=== PATIENT | female | born 1990 | race Hispanic/Latino ===

== ENCOUNTER → 2017-07-24 09:17 | Outpatient (CLI) | payer OTHER, SELFPAY | PROVIDERS: PCP Family Medicine; Visit Provider Family Medicine | DX: Z11.3 Encounter for screening for infections with a predominantly sexual mode of transmission (principal); Z53.9 Procedure and treatment not carried out, unspecified reason ==

== ENCOUNTER → 2017-08-02 12:02 | Outpatient (CLI) | payer OTHER, SELFPAY ==
[2017-08-02 14:13] LABS: Urine N gonorrhoeae NOT DETECTED
[2017-08-02 16:18] LABS: Urine Chlamydia NOT DETECTED
[2017-08-02 17:08] LABS: HIV 1 and 2 Antibody NEGATIVE (NEGATIVE)
== END ==
PROVIDERS: PCP Family Medicine; Visit Provider Family Medicine
DX: Z11.3 Encounter for screening for infections with a predominantly sexual mode of transmission (principal)
CPT/HCPCS: 36415; 86703; 87491; 87591

== ENCOUNTER 2017-12-20 15:19 | Emergency (ER) | payer OTHER, SELFPAY ==
[2017-12-20 15:40] VITALS: BP 133/85; PULSE 108; RESP 25; TEMP 37.5; O2SAT 100
[2017-12-20] MEDS: ONDANSETRON 4 MG/2 ML INJ IV (15:50)
[2017-12-20 15:51] LABS: Add Manual Diff / Slide Review NO; Basophils Percent Auto 0.6 % (0-2); Eosinophils Percent Auto 0.8 % (2-4); Hematocrit 39.5 % (36-46); Hemoglobin 13.7 g/dL (12.0-16.0); Lymphocytes Percent Auto 26.9 % (25-40); Mean Corpuscular HGB Conc 34.6 % (30-36); Mean Corpuscular Hemoglobin 28.4 PG (26-34); Mean Corpuscular Volume 82.1 fL (80-100); Neutrophils Absolute Auto 8200 /uL (3000-5900); Neutrophils Percent Auto 66.7 % (50-75); Platelet Count 354 X10^3/uL (150-400); Red Blood Cell Count 4.81 X10^6/uL (4.0-5.2); Red Cell Distribution Width 13.6 % (11.6-14.8); White Blood Cell Count 12.3 X10^3/uL (4.5-11.0)
[2017-12-20] MEDS: HYDROMORPHONE 1 MG INJ 0.5 MG IV ×2 (15:51→17:09)
[2017-12-20] MEDS: SODIUM CHLORIDE 0.9% 1,000 ML 150 ML IV (15:51)
--- NOTE | 2017-12-20 15:52 | ED.ABDPAIN ---
HPI - Abdominal Pain General Chief Complaint: Abdominal Pain Stated Complaint: ABD PAIN Time Seen by Provider: 12/20/17 15:25 Source: patient and family Mode of arrival: ambulatory Limitations: no limitations History of Present Illness HPI narrative: 27-year-old female presents to the emergency department with multiple family members with a chief complaint of severe right-sided abdominal pain that radiates across to the left side of her abdomen over the course of the day. It is worse when she moves and improves with rest. She denies any injury. She denies nausea, vomiting or diarrhea. She denies fever or chills. She has had multiple episodes of significant gas pain in the past but states this feels different. Her gallbladder is surgically absent. Related Data Home Medications Medication Instructions Recorded Confirmed metformin 1 dose PO DIRECTED 12/20/17 12/20/17 Previous Rx's Medication Instructions Recorded hydrocodone-acetaminophen 1 tab PO Q4-6H PRN #14 tab 12/20/17 ondansetron [Zofran ODT] 4 mg PO Q6H PRN #14 tab 12/20/17 Allergies Allergy/AdvReac Type Severity Reaction Status Date / Time Penicillins [PENICILLINS] Allergy Unknown Verified 12/20/17 15:40 Review of Systems Review of Systems All systems reviewed & are unremarkable except as noted in HPI and below Constitutional Denies chills, Denies fever(s), Denies lethargy and Denies weakness Eyes Denies change in vision, Denies eye discharge, Denies irritation and Denies loss of vision ENT Ears, Nose, Mouth, and Throat: Denies change in voice, Denies neck pain and Denies sore throat Cardiovascular Denies chest pain, Denies irregular heart rhythm, Denies lightheadedness, Denies palpitations, Denies dyspnea, Denies dyspnea on exertion and Denies orthopnea Respiratory Denies cough, Denies dyspnea, Denies dyspnea on exertion and Denies wheezing Gastrointestinal Gastrointestinal: Reports abdominal pain, Denies change in bowel habits, Denies diarrhea, Denies nausea and Denies vomiting Genitourinary Denies hematuria, Denies flank pain, Denies urinary incontinence and Denies urinary urgency Musculoskeletal Denies neck pain Integumentary/Breasts Denies pruritus, Denies erythema, Denies rash and Denies wounds Neurologic Denies confusion, Denies loss of vision and Denies weakness Psychiatric Denies anxiety, Denies confusion, Denies depression, Denies homicidal ideation and Denies suicidal ideation Endocrine Denies palpitations Hematologic/Lymphatic Denies easy bruising Allergic/Immunologic Denies wheezing [facility] Medical History Anemia (Chronic 2006) Anxiety (Chronic 2009) Irregular periods/menstrual cycles (Chronic 2009) Migraines (Chronic 2005) Ovarian cyst (Chronic 2003) Chicken pox (Resolved 1998) Surgical History Anesthesia (Resolved) Hx of cholecystectomy (Resolved 2014) Family History Grandfather Heart disease Hypertension High cholesterol Diabetes mellitus Grandmother Heart disease Diabetes mellitus Mother Age: 50 Hypertension High cholesterol Diabetes mellitus Social History pets and animals: Yes education level: high school occupational status: student robert/congregational: [employer] seatbelt use: always working smoke detector in home: Yes fire extinguisher in home: Yes firearms in home: No Smoking Status: Current some day smoker quit status: quit date established alcohol intake: current substance use type: does not use during the past year weight has: increased > 10 lbs well-balanced diet: about half the time daily servings fruits/ve-4 caffeine: No eating out: rarely or never frequency: 1-2 times per week duration: 15-30 minutes/day additional social history: Rare/occasional alcohol use Exam Narrative Exam Narrative: GENERAL: 27F clutching her abdomen, obviously uncomfortable. HEAD: Atraumatic. Normocephalic. No temporal or scalp tenderness. EYES: Pupils equal round and reactive. Extraocular motions intact. No scleral icterus. No injection or drainage. ENT: Nose without bleeding, purulent drainage or septal hematoma. Throat without erythema, tonsillar hypertrophy or exudate. Uvula midline. Airway patent. NECK: Trachea midline. No JVD or lymphadenopathy. Supple, nontender, no meningeal signs. CARDIOVASCULAR: Regular rate and rhythm without murmurs, gallops, or rubs. RESPIRATORY: Clear to auscultation. Breath sounds equal bilaterally. No wheezes, rales, or rhonchi. GASTROINTESTINAL: Abdomen soft, and tender in a general distribution, perhaps worse on the right side, nondistended. No hepato-splenomegaly, or palpable masses. No guarding. EXTREMITIES: No clubbing, cyanosis, or edema. No joint tenderness, effusion, or edema noted. BACK: Nontender without deformity or crepitance. No flank tenderness. NEURO: AOx3. SKIN: No rash or erythema. Initial Vital Signs Initial Vital Signs: Vital Signs Temperature 99.5 F 12/20/17 15:40 Pulse Rate 108 H 12/20/17 15:40 Respiratory Rate 25 H 12/20/17 15:40 Blood Pressure 133/85 12/20/17 15:40 Pulse Oximetry 100 12/20/17 15:40 Course Orders Ordered: ED Orders 12/20/17 15:45 Complete Blood Count AUTO DIFF Stat Comprehensive Metabolic Panel Stat HCG Quantitative Stat Lipase Stat 12/20/17 16:10 XR acute abdomen series Stat 12/20/17 17:06 US abdomen complete Stat 12/20/17 19:16 CT abdomen pelvis w con Stat Sodium Chloride (Normal Saline 0.9%) 1,000 mls @ 150 mls/hr IV CONT RACHELLE Last Infusion: 12/20/17 18:19 Dose: 0 mls/hr Admin: 12/20/17 15:51 Dose: 150 mls/hr Sodium Chloride (Normal Saline 0.9%) 1,000 mls @ 150 mls/hr IV CONT RACHELLE Discontinued Medications Hydrocodone Bitart/Acetaminophen (Vicodin Prepack) 1 bottle MISC SEEINSTR ONE Stop: 12/20/17 21:10 Last Admin: 12/20/17 21:13 Dose: 1 bottle Hydromorphone HCl (Dilaudid) 0.5 mg IV NOW ONE Stop: 12/20/17 15:44 Last Admin: 12/20/17 15:51 Dose: 0.5 mg Hydromorphone HCl (Dilaudid) 0.5 mg IV NOW ONE Stop: 12/20/17 17:07 Last Admin: 12/20/17 17:09 Dose: 0.5 mg Ondansetron HCl (Zofran) 4 mg IV NOW ONE Stop: 12/20/17 15:44 Last Admin: 12/20/17 15:50 Dose: 4 mg Ondansetron HCl (Zofran Odt Prepack) 1 bottle MISC SEEINSTR ONE Stop: 12/20/17 21:10 Last Admin: 12/20/17 21:13 Dose: 1 bottle Vital Signs - 8 hr 12/20/17 15:40 Temperature 99.5 F Pulse Rate 108 H Respiratory Rate 25 H Blood Pressure 133/85 Pulse Oximetry 100 MDM - Abdominal Pain Differential Diagnosis Differential diagnosis: Likely abdominal pain, acute appendicitis, calculus of kidney, constipation, endometriosis, gastroenteritis, pancreatitis and small bowel obstruction Medical Records Attestation: I reviewed the patient's medical records. Lab Data Attestation: I reviewed the patient's lab results. Result diagrams: 12/20/17 15:45 12/20/17 15:45 Lab Results 12/20/17 12/20/17 12/20/17 Range/Units 15:45 15:45 15:45 WBC 12.3 H (4.5-11.0) X10^3/uL RBC 4.81 (4.0-5.2) X10^6/uL Hgb 13.7 (12.0-16.0) g/dL Hct 39.5 (36-46) % MCV 82.1 (80-100) fL MCH 28.4 (26-34) PG MCHC 34.6 (30-36) % RDW 13.6 (11.6-14.8) % Plt Count 354 (150-400) X10^3/uL Neut % (Auto) 66.7 (50-75) % Lymph % (Auto) 26.9 (25-40) % [place] % (Auto) 5.0 (3-14) % Eos % (Auto) 0.8 L (2-4) % Baso % (Auto) 0.6 (0-2) % Neut # (Auto) 8200 H (7100-5247) /uL Sodium 143 (137-145) mmol/L Potassium 3.5 (3.4-5.1) mmol/L Chloride 101 (98-107) mmol/L Carbon Dioxide 24 (22-32) mmol/L BUN 12 (7-17) mg/dL Creatinine 0.80 (0.52-1.04) mg/dL Estimated GFR > 60.0 (>60) mL/min BUN/Creatinine Ratio 15.0 (6-22) Glucose 140 H (70-100) mg/dL Calcium 10.1 (8.4-10.2) mg/dL Total Bilirubin 0.4 (0.2-1.3) mg/dL AST 24 (14-36) IU/L ALT 41 (9-52) IU/L Alkaline Phosphatase 89 (38-126) U/L Total Protein 8.6 H (6.3-8.2) g/dL Albumin 4.9 (3.5-5.0) g/dL Globulin 3.7 (1.7-4.1) g/dL Albumin/Globulin Ratio 1.3 (1.0-2.8) Lipase 77 (23-300) U/L HCG, Quant Cancelled < 2.39 Point of care testing: Urine Dip Bedside Urine Glucose Negative Bedside Urine Bilirubin - Negative Bedside Urine Ketone - Negative Urine Specific [place] 1.010 Bedside Urine Occult Blood - Negative Bedside Urine pH 7.5 Bedside Urine Protein - Negative Bedside Urine Urobilinogen +/- 1mg Bedside Urine Nitrite - Negative Bedside Urine Leukocytes - Negative Esterase Imaging Data CT scan - abdomen: Radiologist's impression: [place] [address] CT Scan Report Signed Patient: Mandi Goyal#: [id number] : 1990Acct:[id number] Age/Sex: 27 / FDate of Service: 12/20/17 Loc: ED Accession Number: [id number] Procedure: CT abdomen pelvis w con Ordering Provider: Pablo Moses D.O. PROCEDURE: CT ABDOMEN PELVIS W CON INDICATIONS: severe RIGHT sided pain TECHNIQUE: After the administration of intravenous contrast, 5 mm thick sections acquired from the diaphragm to the symphysis. 5 mm coronal and sagittal reformats were acquired. For radiation dose reduction, the following was used: automated exposure control, adjustment of mA and/or kV according to patient size. COMPARISON: None. FINDINGS: Image quality: Excellent. ABDOMEN: Lung bases: Lung bases are clear. Heart size is normal. Solid organs: Liver is normal in size and enhancement. Gallbladder has been previously resected. Biliary system is non dilated. Pancreas enhances normally. Spleen is normal in size and enhancement. No adrenal nodules. Kidneys demonstrate normal size and enhancement, without hydronephrosis. Peritoneum and bowel: Bowel loops demonstrate normal wall thickness and caliber. No free fluid or air. Nodes and vessels: No retroperitoneal or mesenteric adenopathy by size criteria. Aorta and inferior vena cava are normal in size. Miscellaneous: No ventral hernias. PELVIS: Genitourinary: Bladder wall thickness is normal. Miscellaneous: No inguinal hernias or adenopathy. Normal appendix found. Bones: No suspicious bony lesions. No vertebral body compression fractures. IMPRESSION: Source of pain is not seen. Prior cholecystectomy. Normal appendix found, somewhat elongated and terminating at the undersurface of the liver, right hepatic lobe. Throughout the abdomen and pelvis no inflammation is found. Dictated by: Salazar Castellanos M.D. on 12/20/2017 at 20:23 Approved by: Salazar Castellanos M.D. on 12/20/2017 at 20:[address] [address] Ultrasound Report Signed Patient: Mandi Goyal#: [id number] : 1990Acct:[id number] Age/Sex: 27 FDate of Service: 12/20/17 Loc: ED Accession Number: [id number] Procedure: US abdomen complete Ordering Provider: Pablo Moses D.O. PROCEDURE: US ABDOMEN COMPLETE INDICATIONS: severe RUQ pain TECHNIQUE: Real-time scanning was performed of the abdominal and retroperitoneal organs, with image documentation. COMPARISON: [facility], , XR ACUTE ABDOMEN SERIES, 12/20/2017, 16:08. [facility], US, PELVIC COMPLETE, 04/02/2017, 15:25. [facility], US, PELVIC COMPLETE, 04/20/2016, 14:10. FINDINGS: Liver: Liver is normal in size and homogeneous in echotexture, diffusely hyperechoic consistent with fatty infiltration. Gallbladder: The gallbladder is absent. Biliary ducts: Intrahepatic bile ducts are non-dilated. Extrahepatic bile duct caliber measures 5.0 mm. Normal is 6-7 mm or less in diameter, or 10 mm or less post-cholecystectomy. Pancreas: Not seen due to bowel gas Spleen: Spleen is normal in size and homogeneous in echotexture. Kidneys: Kidneys are normal in size and echotexture. Right kidney measures 11.6 cm long; left kidney measures 14.4 cm long. No hydronephrosis or nephrolithiasis. No solid masses. Aorta: Not seen due to bowel gas Iliacs: Not seen due to bowel gas IVC: Not seen due to bowel gas and hyperechoic liver echotexture. Miscellaneous: No free abdominal fluid. IMPRESSION: The increased echotexture of the liver parenchyma is generally associated with diffuse fatty infiltration. The gallbladder is absent but no biliary distention is present. The pancreas and additional significant portions of the retroperitoneum could not be seen due to bowel gas. A definite source of pain is not seen and therefore CT scanning may become necessary. Dictated by: Salazar Castellanos M.D. on 12/20/2017 at 18:05 Approved by: Salazar Castellanos M.D. on 12/20/2017 at 18:06 [facility] Narrative Medical decision making narrative: Multiple etiologies of the patient's abdominal pain considered as noted above. These more ominous, potentially surgical causes of pain are thought less likely given the nature of the patient's examination, essentially normal labs, and unremarkable images. Patient discharged with pain control and antiemetics and encouraged to follow up closely. She has had bedside discharge instructions with return precautions. She has verbalized her understanding and has had her questions answered to her apparent satisfaction Discharge Plan Departure Patient Disposition: Home Clinical Impression: Abdominal pain Instructions: DI for Abdominal Pain-Adult Activity Restrictions/Additional Instructions: 1. Drink plenty of fluids with frequent small sips. 2. For the next 24 hours a clear liquid diet is advised. After that please employ a brat diet which would include bananas, rice, apples, toast. 3. Please take medications as directed. 4. Please follow-up with your doctor in the next 1-2 days. Call the office for an appointment. 5. Please return to the emergency Department for any worsening or persistent symptoms, such as increasing pain or fever. You have been prescribed narcotic medications. While on these medications you cannot drive or operate heavy machinery. Additionally you cannot sign legal documents or perform any duties such as this. Many people get constipated on narcotic medications so it would be advisable to discuss stool softeners with the pharmacist when you pickle solution maker your prescription. Simethicone (Gas-X) is an over the counter medication which will likely help your pain Please understand that we cannot provide further refills of narcotics or controlled substances through the ED and your pain management will need to be through your Primary Care Provider Prescriptions: New hydrocodone-acetaminophen 5-325 mg tablet 1 tab PO Q4-6H PRN (Reason: pain) Qty: 14 RF: 0 ondansetron [Zofran ODT] 4 mg tablet,disintegrating 4 mg PO Q6H PRN (Reason: nausea and vomiting) Qty: 14 RF: 0 No Action metformin 500 mg tablet 1 dose PO DIRECTED RF: 0 Referrals: Shilpi Sahu MD [Primary Care Provider] -
[2017-12-20 16:07] LABS: Alanine Aminotransferase 41 IU/L (9-52); Albumin 4.9 g/dL (3.5-5.0); Albumin Globulin Ratio 1.3 (1.0-2.8); Alkaline Phosphatase 89 U/L (38-126); Aspartate Aminotransferase 24 IU/L (14-36); Bilirubin Total 0.4 mg/dL (0.2-1.3); Blood Urea Nitrogen 12 mg/dL (7-17); Calcium 10.1 mg/dL (8.4-10.2); Carbon Dioxide 24 mmol/L (22-32); Chloride 101 mmol/L (98-107); Estimated Glomerular Filt Rate > 60.0 mL/min (>60); Globulin 3.7 g/dL (1.7-4.1); Glucose 140 mg/dL (70-100); HEMOLYSIS < 15 (0-50); Lipase 77 U/L (23-300); Potassium 3.5 mmol/L (3.4-5.1); Sodium 143 mmol/L (137-145); Total Protein 8.6 g/dL (6.3-8.2)
--- NOTE | 2017-12-20 16:10 | DI.RAD.S_ITS ---
PROCEDURE: XR ACUTE ABDOMEN SERIES INDICATIONS: Abdominal pain TECHNIQUE: One view chest and two views of the abdomen were acquired. COMPARISON: None. FINDINGS: Surgical changes and devices: Clips are present within the right upper quadrant, suggestive of a prior cholecystectomy. Chest: Lungs are clear. Heart size is normal. No pleural effusions. No pneumoperitoneum. Abdomen: Bowel gas pattern is normal. No dilated air-filled small bowel loops are evident. Air and stool is seen within the colon. No suspicious calcifications. Visualized solid organ contours appear normal. Bones: No suspicious bony lesions. IMPRESSION: 1. No bowel obstruction. 2. Negative chest. Dictated by: Shukri Rascon M.D. on 12/20/2017 at 16:05 Approved by: Shukri Rascon M.D. on 12/20/2017 at 16:05
[2017-12-20 16:24] LABS: HCG Quantitative /Beta subunit < 2.39 mIU/mL
--- NOTE | 2017-12-20 17:06 | DI.US.S_ITS ---
PROCEDURE: US ABDOMEN COMPLETE INDICATIONS: severe RUQ pain TECHNIQUE: Real-time scanning was performed of the abdominal and retroperitoneal organs, with image documentation. COMPARISON: [facility], CR, XR ACUTE ABDOMEN SERIES, 12/20/2017, 16:08. [facility], US, PELVIC COMPLETE, 04/02/2017, 15:25. [facility], US, PELVIC COMPLETE, 04/20/2016, 14:10. FINDINGS: Liver: Liver is normal in size and homogeneous in echotexture, diffusely hyperechoic consistent with fatty infiltration. Gallbladder: The gallbladder is absent. Biliary ducts: Intrahepatic bile ducts are non-dilated. Extrahepatic bile duct caliber measures 5.0 mm. Normal is 6-7 mm or less in diameter, or 10 mm or less post-cholecystectomy. Pancreas: Not seen due to bowel gas Spleen: Spleen is normal in size and homogeneous in echotexture. Kidneys: Kidneys are normal in size and echotexture. Right kidney measures 11.6 cm long; left kidney measures 14.4 cm long. No hydronephrosis or nephrolithiasis. No solid masses. Aorta: Not seen due to bowel gas Iliacs: Not seen due to bowel gas IVC: Not seen due to bowel gas and hyperechoic liver echotexture. Miscellaneous: No free abdominal fluid. IMPRESSION: The increased echotexture of the liver parenchyma is generally associated with diffuse fatty infiltration. The gallbladder is absent but no biliary distention is present. The pancreas and additional significant portions of the retroperitoneum could not be seen due to bowel gas. A definite source of pain is not seen and therefore CT scanning may become necessary. Dictated by: Salazar Castellanos M.D. on 12/20/2017 at 18:05 Approved by: Salazar Castellanos M.D. on 12/20/2017 at 18:06
--- NOTE | 2017-12-20 19:16 | DI.CT.S_ITS ---
PROCEDURE: CT ABDOMEN PELVIS W CON INDICATIONS: severe RIGHT sided pain TECHNIQUE: After the administration of intravenous contrast, 5 mm thick sections acquired from the diaphragm to the symphysis. 5 mm coronal and sagittal reformats were acquired. For radiation dose reduction, the following was used: automated exposure control, adjustment of mA and/or kV according to patient size. COMPARISON: None. FINDINGS: Image quality: Excellent. ABDOMEN: Lung bases: Lung bases are clear. Heart size is normal. Solid organs: Liver is normal in size and enhancement. Gallbladder has been previously resected. Biliary system is non dilated. Pancreas enhances normally. Spleen is normal in size and enhancement. No adrenal nodules. Kidneys demonstrate normal size and enhancement, without hydronephrosis. Peritoneum and bowel: Bowel loops demonstrate normal wall thickness and caliber. No free fluid or air. Nodes and vessels: No retroperitoneal or mesenteric adenopathy by size criteria. Aorta and inferior vena cava are normal in size. Miscellaneous: No ventral hernias. PELVIS: Genitourinary: Bladder wall thickness is normal. Miscellaneous: No inguinal hernias or adenopathy. Normal appendix found. Bones: No suspicious bony lesions. No vertebral body compression fractures. IMPRESSION: Source of pain is not seen. Prior cholecystectomy. Normal appendix found, somewhat elongated and terminating at the undersurface of the liver, right hepatic lobe. Throughout the abdomen and pelvis no inflammation is found. Dictated by: Salazar Castellanos M.D. on 12/20/2017 at 20:23 Approved by: Salazar Castellanos M.D. on 12/20/2017 at 20:25
--- NOTE | 2017-12-20 21:09 | ED_ITS ---
HPI - Abdominal Pain General Chief Complaint: Abdominal Pain Stated Complaint: ABD PAIN Time Seen by Provider: 12/20/17 15:25 Source: patient and family Mode of arrival: ambulatory Limitations: no limitations History of Present Illness HPI narrative: 27-year-old female presents to the emergency department with multiple family members with a chief complaint of severe right-sided abdominal pain that radiates across to the left side of her abdomen over the course of the day. It is worse when she moves and improves with rest. She denies any injury. She denies nausea, vomiting or diarrhea. She denies fever or chills. She has had multiple episodes of significant gas pain in the past but states this feels different. Her gallbladder is surgically absent. Related Data Home Medications Medication Instructions Recorded Confirmed metformin 1 dose PO DIRECTED 12/20/17 12/20/17 Previous Rx's Medication Instructions Recorded hydrocodone-acetaminophen 1 tab PO Q4-6H PRN #14 tab 12/20/17 ondansetron [Zofran ODT] 4 mg PO Q6H PRN #14 tab 12/20/17 Allergies Allergy/AdvReac Type Severity Reaction Status Date / Time Penicillins [PENICILLINS] Allergy Unknown Verified 12/20/17 15:40 Review of Systems Review of Systems All systems reviewed & are unremarkable except as noted in HPI and below Constitutional Denies chills, Denies fever(s), Denies lethargy and Denies weakness Eyes Denies change in vision, Denies eye discharge, Denies irritation and Denies loss of vision ENT Ears, Nose, Mouth, and Throat: Denies change in voice, Denies neck pain and Denies sore throat Cardiovascular Denies chest pain, Denies irregular heart rhythm, Denies lightheadedness, Denies palpitations, Denies dyspnea, Denies dyspnea on exertion and Denies orthopnea Respiratory Denies cough, Denies dyspnea, Denies dyspnea on exertion and Denies wheezing Gastrointestinal Gastrointestinal: Reports abdominal pain, Denies change in bowel habits, Denies diarrhea, Denies nausea and Denies vomiting Genitourinary Denies hematuria, Denies flank pain, Denies urinary incontinence and Denies urinary urgency Musculoskeletal Denies neck pain Integumentary/Breasts Denies pruritus, Denies erythema, Denies rash and Denies wounds Neurologic Denies confusion, Denies loss of vision and Denies weakness Psychiatric Denies anxiety, Denies confusion, Denies depression, Denies homicidal ideation and Denies suicidal ideation Endocrine Denies palpitations Hematologic/Lymphatic Denies easy bruising Allergic/Immunologic Denies wheezing [facility] Medical History Anemia (Chronic 2006) Anxiety (Chronic 2009) Irregular periods/menstrual cycles (Chronic 2009) Migraines (Chronic 2005) Ovarian cyst (Chronic 2003) Chicken pox (Resolved 1998) Surgical History Anesthesia (Resolved) Hx of cholecystectomy (Resolved 2014) Family History Grandfather Heart disease Hypertension High cholesterol Diabetes mellitus Grandmother Heart disease Diabetes mellitus Mother Age: 50 Hypertension High cholesterol Diabetes mellitus Social History pets and animals: Yes education level: high school occupational status: student robert/uatsdin: Rastafarian seatbelt use: always working smoke detector in home: Yes fire extinguisher in home: Yes firearms in home: No Smoking Status: Current some day smoker quit status: quit date established alcohol intake: current substance use type: does not use during the past year weight has: increased > 10 lbs well-balanced diet: about half the time daily servings fruits/ve-4 caffeine: No eating out: rarely or never frequency: 1-2 times per week duration: 15-30 minutes/day additional social history: Rare/occasional alcohol use Exam Narrative Exam Narrative: GENERAL: 27F clutching her abdomen, obviously uncomfortable. HEAD: Atraumatic. Normocephalic. No temporal or scalp tenderness. EYES: Pupils equal round and reactive. Extraocular motions intact. No scleral icterus. No injection or drainage. ENT: Nose without bleeding, purulent drainage or septal hematoma. Throat without erythema, tonsillar hypertrophy or exudate. Uvula midline. Airway patent. NECK: Trachea midline. No JVD or lymphadenopathy. Supple, nontender, no meningeal signs. CARDIOVASCULAR: Regular rate and rhythm without murmurs, gallops, or rubs. RESPIRATORY: Clear to auscultation. Breath sounds equal bilaterally. No wheezes , rales, or rhonchi. GASTROINTESTINAL: Abdomen soft, and tender in a general distribution, perhaps worse on the right side, nondistended. No hepato-splenomegaly, or palpable masses. No guarding. EXTREMITIES: No clubbing, cyanosis, or edema. No joint tenderness, effusion, or edema noted. BACK: Nontender without deformity or crepitance. No flank tenderness. NEURO: AOx3. SKIN: No rash or erythema. Initial Vital Signs Initial Vital Signs: Vital Signs Temperature 99.5 F 12/20/17 15:40 Pulse Rate 108 H 12/20/17 15:40 Respiratory Rate 25 H 12/20/17 15:40 Blood Pressure 133/85 12/20/17 15:40 Pulse Oximetry 100 12/20/17 15:40 Course Orders Ordered: ED Orders 12/20/17 15:45 Complete Blood Count AUTO DIFF Stat Comprehensive Metabolic Panel Stat HCG Quantitative Stat Lipase Stat 12/20/17 16:10 XR acute abdomen series Stat 12/20/17 17:06 US abdomen complete Stat 12/20/17 19:16 CT abdomen pelvis w con Stat Sodium Chloride (Normal Saline 0.9%) 1,000 mls @ 150 mls/hr IV CONT RACHELLE Last Infusion: 12/20/17 18:19 Dose: 0 mls/hr Admin: 12/20/17 15:51 Dose: 150 mls/hr Sodium Chloride (Normal Saline 0.9%) 1,000 mls @ 150 mls/hr IV CONT RACHELLE Discontinued Medications Hydrocodone Bitart/Acetaminophen (Vicodin Prepack) 1 bottle MISC SEEINSTR ONE Stop: 12/20/17 21:10 Last Admin: 12/20/17 21:13 Dose: 1 bottle Hydromorphone HCl (Dilaudid) 0.5 mg IV NOW ONE Stop: 12/20/17 15:44 Last Admin: 12/20/17 15:51 Dose: 0.5 mg Hydromorphone HCl (Dilaudid) 0.5 mg IV NOW ONE Stop: 12/20/17 17:07 Last Admin: 12/20/17 17:09 Dose: 0.5 mg Ondansetron HCl (Zofran) 4 mg IV NOW ONE Stop: 12/20/17 15:44 Last Admin: 12/20/17 15:50 Dose: 4 mg Ondansetron HCl (Zofran Odt Prepack) 1 bottle MISC SEEINSTR ONE Stop: 12/20/17 21:10 Last Admin: 12/20/17 21:13 Dose: 1 bottle Vital Signs - 8 hr 12/20/17 15:40 Temperature 99.5 F Pulse Rate 108 H Respiratory Rate 25 H Blood Pressure 133/85 Pulse Oximetry 100 MDM - Abdominal Pain Differential Diagnosis Differential diagnosis: Likely abdominal pain, acute appendicitis, calculus of kidney, constipation, endometriosis, gastroenteritis, pancreatitis and small bowel obstruction Medical Records Attestation: I reviewed the patient's medical records. Lab Data Attestation: I reviewed the patient's lab results. Result diagrams: 12/20/17 15:45 12/20/17 15:45 Lab Results 12/20/17 12/20/17 12/20/17 Range/Units 15:45 15:45 15:45 WBC 12.3 H (4.5-11.0) X10^3/uL RBC 4.81 (4.0-5.2) X10^6/uL Hgb 13.7 (12.0-16.0) g/dL Hct 39.5 (36-46) % MCV 82.1 (80-100) fL MCH 28.4 (26-34) PG MCHC 34.6 (30-36) % RDW 13.6 (11.6-14.8) % Plt Count 354 (150-400) X10^3/uL Neut % (Auto) 66.7 (50-75) % Lymph % (Auto) 26.9 (25-40) % Waldo % (Auto) 5.0 (3-14) % Eos % (Auto) 0.8 L (2-4) % Baso % (Auto) 0.6 (0-2) % Neut # (Auto) 8200 H (7975-1082) /uL Sodium 143 (137-145) mmol/L Potassium 3.5 (3.4-5.1) mmol/L Chloride 101 (98-107) mmol/L Carbon Dioxide 24 (22-32) mmol/L BUN 12 (7-17) mg/dL Creatinine 0.80 (0.52-1.04) mg/dL Estimated GFR > 60.0 (>60) mL/min BUN/Creatinine Ratio 15.0 (6-22) Glucose 140 H (70-100) mg/dL Calcium 10.1 (8.4-10.2) mg/dL Total Bilirubin 0.4 (0.2-1.3) mg/dL AST 24 (14-36) IU/L ALT 41 (9-52) IU/L Alkaline Phosphatase 89 (38-126) U/L Total Protein 8.6 H (6.3-8.2) g/dL Albumin 4.9 (3.5-5.0) g/dL Globulin 3.7 (1.7-4.1) g/dL Albumin/Globulin Ratio 1.3 (1.0-2.8) Lipase 77 (23-300) U/L HCG, Quant Cancelled < 2.39 Point of care testing: Urine Dip Bedside Urine Glucose Negative Bedside Urine Bilirubin - Negative Bedside Urine Ketone - Negative Urine Specific Burton 1.010 Bedside Urine Occult Blood - Negative Bedside Urine pH 7.5 Bedside Urine Protein - Negative Bedside Urine Urobilinogen +/- 1mg Bedside Urine Nitrite - Negative Bedside Urine Leukocytes - Negative Esterase Imaging Data CT scan - abdomen: Radiologist's impression: [place] [address] CT Scan Report Signed Patient: Mandi Goyal#: [id number] : 1990Acct:[id number] Age/Sex: 27 / FDate of Service: 12/20/17 Loc: ED Accession Number: [id number] Procedure: CT abdomen pelvis w con Ordering Provider: Pablo Moses D.O. PROCEDURE: CT ABDOMEN PELVIS W CON INDICATIONS: severe RIGHT sided pain TECHNIQUE: After the administration of intravenous contrast, 5 mm thick sections acquired from the diaphragm to the symphysis. 5 mm coronal and sagittal reformats were acquired. For radiation dose reduction, the following was used: automated exposure control, adjustment of mA and/or kV according to patient size. COMPARISON: None. FINDINGS: Image quality: Excellent. ABDOMEN: Lung bases: Lung bases are clear. Heart size is normal. Solid organs: Liver is normal in size and enhancement. Gallbladder has been previously resected. Biliary system is non dilated. Pancreas enhances normally. Spleen is normal in size and enhancement. No adrenal nodules. Kidneys demonstrate normal size and enhancement, without hydronephrosis. Peritoneum and bowel: Bowel loops demonstrate normal wall thickness and caliber. No free fluid or air. Nodes and vessels: No retroperitoneal or mesenteric adenopathy by size criteria. Aorta and inferior vena cava are normal in size. Miscellaneous: No ventral hernias. PELVIS: Genitourinary: Bladder wall thickness is normal. Miscellaneous: No inguinal hernias or adenopathy. Normal appendix found. Bones: No suspicious bony lesions. No vertebral body compression fractures. IMPRESSION: Source of pain is not seen. Prior cholecystectomy. Normal appendix found, somewhat elongated and terminating at the undersurface of the liver, right hepatic lobe. Throughout the abdomen and pelvis no inflammation is found. Dictated by: Salazar Castellanos M.D. on 12/20/2017 at 20:23 Approved by: Salazar Castellanos M.D. on 12/20/2017 at 20:[address] [address] Ultrasound Report Signed Patient: Mandi Goyal#: [id number] : 1990Acct:[id number] Age/Sex: 27 FDate of Service: 12/20/17 Loc: ED Accession Number: [id number] Procedure: US abdomen complete Ordering Provider: Pablo oMses D.O. PROCEDURE: US ABDOMEN COMPLETE INDICATIONS: severe RUQ pain TECHNIQUE: Real-time scanning was performed of the abdominal and retroperitoneal organs, with image documentation. COMPARISON: [facility], , XR ACUTE ABDOMEN SERIES, 12/20/2017, 16:08. [facility], US, PELVIC COMPLETE, 04/02/2017, 15:25. [facility], US , PELVIC COMPLETE, 04/20/2016, 14:10. FINDINGS: Liver: Liver is normal in size and homogeneous in echotexture, diffusely hyperechoic consistent with fatty infiltration. Gallbladder: The gallbladder is absent. Biliary ducts: Intrahepatic bile ducts are non-dilated. Extrahepatic bile duct caliber measures 5.0 mm. Normal is 6-7 mm or less in diameter, or 10 mm or less post-cholecystectomy. Pancreas: Not seen due to bowel gas Spleen: Spleen is normal in size and homogeneous in echotexture. Kidneys: Kidneys are normal in size and echotexture. Right kidney measures 11.6 cm long; left kidney measures 14.4 cm long. No hydronephrosis or nephrolithiasis. No solid masses. Aorta: Not seen due to bowel gas Iliacs: Not seen due to bowel gas IVC: Not seen due to bowel gas and hyperechoic liver echotexture. Miscellaneous: No free abdominal fluid. IMPRESSION: The increased echotexture of the liver parenchyma is generally associated with diffuse fatty infiltration. The gallbladder is absent but no biliary distention is present. The pancreas and additional significant portions of the retroperitoneum could not be seen due to bowel gas. A definite source of pain is not seen and therefore CT scanning may become necessary. Dictated by: Salazar Castellanos M.D. on 12/20/2017 at 18:05 Approved by: Salazar Castellanos M.D. on 12/20/2017 at 18:06 [facility] Narrative Medical decision making narrative: Multiple etiologies of the patient's abdominal pain considered as noted above. These more ominous, potentially surgical causes of pain are thought less likely given the nature of the patient' s examination, essentially normal labs, and unremarkable images. Patient discharged with pain control and antiemetics and encouraged to follow up closely. She has had bedside discharge instructions with return precautions. She has verbalized her understanding and has had her questions answered to her apparent satisfaction Discharge Plan Departure Patient Disposition: Home Clinical Impression: Abdominal pain Instructions: DI for Abdominal Pain-Adult Activity Restrictions/Additional Instructions: 1. Drink plenty of fluids with frequent small sips. 2. For the next 24 hours a clear liquid diet is advised. After that please employ a brat diet which would include bananas, rice, apples, toast. 3. Please take medications as directed. 4. Please follow-up with your doctor in the next 1-2 days. Call the office for an appointment. 5. Please return to the emergency Department for any worsening or persistent symptoms, such as increasing pain or fever. You have been prescribed narcotic medications. While on these medications you cannot drive or operate heavy machinery. Additionally you cannot sign legal documents or perform any duties such as this. Many people get constipated on narcotic medications so it would be advisable to discuss stool softeners with the pharmacist when you pickle solution maker your prescription. Simethicone (Gas-X) is an over the counter medication which will likely help your pain Please understand that we cannot provide further refills of narcotics or controlled substances through the ED and your pain management will need to be through your Primary Care Provider Prescriptions: New hydrocodone-acetaminophen 5-325 mg tablet 1 tab PO Q4-6H PRN (Reason: pain) Qty: 14 RF: 0 ondansetron [Zofran ODT] 4 mg tablet,disintegrating 4 mg PO Q6H PRN (Reason: nausea and vomiting) Qty: 14 RF: 0 No Action metformin 500 mg tablet 1 dose PO DIRECTED RF: 0 Referrals: Shilpi Sahu MD [Primary Care Provider] -
[2017-12-20] MEDS: ONDANSETRON 4 MG ODT PREPACK 1 BOTTLE MISC (21:13)
[2017-12-20] MEDS: HYDROCODONE/ACET 5/325 PREPACK 1 BOTTLE MISC (21:13)
[2017-12-20 21:25] VITALS: BP 111/63; PULSE 100; RESP 22; O2SAT 98
== END 2017-12-20 21:34 | disposition home or self-care (01) ==
PROVIDERS: Emergency Provider Emergency Medicine; PCP Family Medicine
DX: R10.9 Unspecified abdominal pain (principal)
CPT/HCPCS: 36591; 74022; 74177; 76700; 80053; 81003; 83690; 84702; 85025; 96361; 96374; 96375; 96376; 99283; 99285; J1170; J2405; Q9967

== ENCOUNTER → 2018-06-24 08:21 | Outpatient (CLI) | payer OTHER, SELFPAY ==
[2018-06-24 09:21] LABS: Hemoglobin A1C% w Est Avg Glu 7.2 % (4.0-6.0)
[2018-06-24 11:28] LABS: Creatinine Urine Random 101.1 mg/dL
[2018-06-24 11:31] LABS: Microalbumi Creatinin Ratio Ur 81.1 ug/mg CR (<30); Microalbumin Urine Random 8.2 mg/dL (0-1.6)
== END ==
PROVIDERS: PCP Family Medicine; Visit Provider Family Medicine
DX: E11.9 Type 2 diabetes mellitus without complications (principal)
CPT/HCPCS: 36415; 82043; 82570; 83036

== ENCOUNTER → 2019-01-27 09:28 | Outpatient (CLI) | payer OTHER, SELFPAY ==
[2019-01-27 10:59] LABS: Add Manual Diff / Slide Review NO; Basophils Absolute Auto 0 /uL (0-100); Basophils Percent Auto 0.4 % (0-2); Eosinophils Absolute Auto 100 /uL (0-450); Eosinophils Percent Auto 1.3 % (2-4); Hematocrit 39.9 % (36-46); Hemoglobin 13.6 g/dL (12.0-16.0); Lymphocytes Absolute Auto 2700 /uL (1100-4500); Lymphocytes Percent Auto 27.4 % (25-40); Mean Corpuscular HGB Conc 34.1 % (30-36); Mean Corpuscular Hemoglobin 28.3 PG (26-34); Mean Corpuscular Volume 82.8 fL (80-100); Monocytes Absolute Auto 400 /uL (0-900); Monocytes Percent Auto 4.4 % (3-14); Neutrophils Absolute Auto 6500 /uL (1500-7000); Neutrophils Percent Auto 66.5 % (50-75); Platelet Count 284 X10^3/uL (150-400); Red Blood Cell Count 4.82 X10^6/uL (4.0-5.2); Red Cell Distribution Width 13.7 % (11.6-14.8); White Blood Cell Count 9.8 X10^3/uL (4.5-11.0)
[2019-01-27 11:10] LABS: Hemoglobin A1C% w Est Avg Glu 7.2 % (4.0-6.0)
[2019-01-27 12:15] LABS: Creatinine Urine Random 62.1 mg/dL
[2019-01-27 12:17] LABS: Alanine Aminotransferase 41 IU/L (<35); Albumin 4.7 g/dL (3.5-5.0); Albumin Globulin Ratio 1.4 (1.0-2.8); Alkaline Phosphatase 106 U/L (38-126); Aspartate Aminotransferase 31 IU/L (14-36); Bilirubin Total 0.4 mg/dL (0.2-1.3); Blood Urea Nitrogen 7 mg/dL (7-17); Calcium 9.8 mg/dL (8.4-10.2); Carbon Dioxide 28 mmol/L (22-32); Chloride 100 mmol/L (98-107); Cholesterol 249 mg/dL (140-199); Estimated Glomerular Filt Rate > 60.0 mL/min (>60); Globulin 3.4 g/dL (1.7-4.1); Glucose 145 mg/dL (70-100); HDL Cholesterol 34 mg/dL (40-60); HEMOLYSIS < 15 (0-50); LDL Cholesterol Calculated 157 mg/dL (<100); Microalbumi Creatinin Ratio Ur 214.1 ug/mg CR (<30); Microalbumin Urine Random 13.3 mg/dL (0-1.6); Potassium 4.2 mmol/L (3.4-5.1); Sodium 142 mmol/L (137-145); Total Protein 8.1 g/dL (6.3-8.2); Triglycerides 292 mg/dL (35-150)
[2019-01-27 13:11] LABS: TSH w/ Reflex to FT4 2.32 uIU/mL (0.47-4.68)
== END ==
PROVIDERS: Family Provider Family Medicine; PCP Family Medicine; Visit Provider Family Medicine
DX: E11.65 Type 2 diabetes mellitus with hyperglycemia (principal); E78.2 Mixed hyperlipidemia
CPT/HCPCS: 36415; 80053; 80061; 82043; 82570; 83036; 84443; 85025

== ENCOUNTER → 2019-04-28 08:46 | Outpatient (CLI) | payer OTHER, SELFPAY ==
[2019-04-28 09:37] LABS: Creatinine Urine Random 167.1 mg/dL
[2019-04-28 09:39] LABS: Hemoglobin A1C% w Est Avg Glu 6.8 % (4.0-6.0)
[2019-04-28 09:42] LABS: Microalbumi Creatinin Ratio Ur 7.7 ug/mg CR (<30); Microalbumin Urine Random 1.3 mg/dL (0-1.6)
== END ==
PROVIDERS: Family Provider Family Medicine; PCP Family Medicine; Referring Provider Family Medicine; Visit Provider Family Medicine
DX: E11.9 Type 2 diabetes mellitus without complications (principal)
CPT/HCPCS: 36415; 82043; 82570; 83036

== ENCOUNTER 2019-06-02 18:11 | Emergency (ER) | payer OTHER, SELFPAY ==
[2019-06-02 18:41] VITALS: BP 143/85; PULSE 89; RESP 16; TEMP 36.2; O2SAT 100; BMI 43.4
[2019-06-02 19:42] LABS: Influenza A - CEPHEID Flu A NEGATIVE (NEGATIVE); Influenza B - CEPHEID Flu B NEGATIVE (NEGATIVE)
--- NOTE | 2019-06-02 20:28 | ED.GENADULT ---
HPI - General Adult General Chief complaint: Upper Respiratory Symptoms Stated complaint: Sore Throat/Fever Time Seen by Provider: 06/02/19 20:23 Source: patient Mode of arrival: Ambulatory Limitations: no limitations History of Present Illness HPI narrative: 29-year-old female here for approximately 24 hours of sore throat and fever. No vomiting. Works at [employer] and she was told that she could not come back to work shows she got tested for COVID-19 Related Data Home Medications Medication Instructions Recorded Confirmed metformin 500 mg tablet See Rx Instructions PO DAILY tab 01/27/19 01/27/19 liraglutide 0.6 mg/0.1 mL (18 mg/3 1.2 mg SUBCUT DAILY ml 04/28/19 mL) subcutaneous pen injector Previous Rx's Medication Instructions Recorded hydroxyzine HCl 25 mg tablet 25 mg PO TID PRN #30 tab 01/27/19 Pen Sutherlin #100 each 04/21/19 Allergies Allergy/AdvReac Type Severity Reaction Status Date / Time Penicillins [PENICILLINS] Allergy Unknown Verified 06/02/19 18:47 Review of Systems Constitutional Constitutional: Reports fever(s) ENT Ears, Nose, Mouth, and Throat: Reports sore throat Cardiovascular Cardiovascular: Denies chest pain Respiratory Respiratory: Reports cough Gastrointestinal Gastrointestinal: Denies vomiting Integumentary/Breasts Skin/Breast: Denies lesions and Denies rash Neurologic Neurologic: Denies behavioral changes Psychiatric Psychiatric: Denies behavioral changes Hematologic/Lymphatic Hematologic/Lymphatic: Denies easy bleeding and Denies easy bruising Allergic/Immunologic Allergic/Immunologic: Denies urticaria Patient History Medical History Anemia (Chronic 2005) Anxiety (Chronic 2009) Chicken pox (Resolved 1998) Diabetes mellitus (Chronic 2017) Irregular periods/menstrual cycles (Chronic 2009) Migraines (Chronic 2005) Ovarian cyst (Chronic 2003) Social History pets and animals: Yes education level: high school occupational status: student robert/christianity: [employer] seatbelt use: always working smoke detector in home: Yes fire extinguisher in home: Yes firearms in home: No Smoking Status: Former smoker Smokeless tobacco user: other quit status: quit date established alcohol intake: current substance use type: does not use during the past year weight has: increased > 10 lbs well-balanced diet: about half the time daily servings fruits/ve-4 caffeine: No eating out: rarely or never Type(s) of exercise: additional frequency: 1-2 times per week duration: 15-30 minutes/day additional social history: Rare/occasional alcohol use Smoking Status: Former smoker alcohol intake frequency: other Substance Use Type: does not use Exam Initial Vital Signs Initial Vital Signs: Vital Signs Temperature 97.1 F L 06/02/19 18:41 Pulse Rate 89 06/02/19 18:41 Respiratory Rate 16 06/02/19 18:41 Blood Pressure 143/85 H 06/02/19 18:41 Pulse Oximetry 100 06/02/19 18:41 Const General: cooperative and comfortable Limitations: mental status not altered HENMT Head: normal to inspection and normocephalic Nose: external nose normal Throat: posterior oropharynx normal Resp Effort & Inspection: normal respiratory effort Auscultation: clear to auscultation bilaterally Cardio Rate: regular rate Rhythm: regular rhythm Skin Lesions: no lesions Rashes: no rashes Neuro General: alert, awake and oriented x3 Cognition: normal cognition Speech: speech normal Extrem General: capillary refill normal Course Orders Ordered: ED Orders 06/02/19 18:44 Flu test [Influenza A & B (PCR)] Stat Vital Signs Vital signs: Vital Signs - 8 hr 06/02/19 21:00 Pulse Rate 91 H Respiratory Rate 16 Blood Pressure 131/82 Pulse Oximetry 98 Medical Decision Making Lab Data Lab results reviewed: Yes I reviewed the patient's lab results. Labs: Lab Results 06/02/19 Range/Units 18:44 Influenza A (RT-PCR) Flu a negative (NEGATIVE) Influenza B (RT-PCR) Flu b negative (NEGATIVE) MDM Narrative Medical decision making narrative: Low suspicion for strep throat. Flu is negative. Given her work situation testing for COVID-19 not unreasonable. Patient was given instructions with regard to this. She was given return precautions. We did discuss self quarantine until results. She expressed understanding and agreement. Discharge Plan Departure Patient Disposition: Home Clinical Impression: Sore throat Discharge Date/Time: 06/02/19 21:00 Instructions: Sore Throat Activity Restrictions/Additional Instructions: We did test you today for COVID-19 mostly because of your work environment. This result will take 2-7 days to result. We will call you for positive or negative results. Until then recommend that you wash your hands frequently and cover any coughing. Also recommend that you avoid contact with others. Contact your primary provider for follow-up. Return to the emergency department for any new or worsening symptoms Prescriptions: No Action metformin 500 mg tablet See Rx Instructions PO DAILY RF: 0 hydroxyzine HCl 25 mg tablet 25 mg PO TID PRN (Reason: anxiety) Qty: 30 RF: 0 Victoza 3-Matt 0.6 mg/0.1 mL (18 mg/3 mL) pen injector 1.2 mg SUBCUT DAILY RF: 0 (DME) Pen Sutherlin Qty: 100 RF: 3 Referrals: Shilpi Sahu MD [Primary Care Provider] -
[2019-06-02 21:00] VITALS: BP 131/82; PULSE 91; RESP 16; O2SAT 98
[2019-06-08 12:22] LABS: COVID19 Sendout Not Detected (Not Detected)
== END 2019-06-02 21:00 | disposition home or self-care (01) ==
PROVIDERS: Emergency Provider Emergency Medicine; Family Provider Family Medicine; PCP Family Medicine
DX: J02.9 Acute pharyngitis, unspecified (principal)
CPT/HCPCS: 87502; 87635; 99281; 99282

== ENCOUNTER → 2019-08-15 10:56 | Outpatient (CLI) | payer OTHER, SELFPAY ==
[2019-08-15 11:42] LABS: Hemoglobin A1C% w Est Avg Glu 7.3 % (4.0-6.0)
== END ==
PROVIDERS: Family Provider Family Medicine; PCP Family Medicine; Referring Provider Family Medicine; Visit Provider Family Medicine
DX: E11.9 Type 2 diabetes mellitus without complications (principal)
CPT/HCPCS: 36415; 83036

== ENCOUNTER → 2020-03-02 09:02 | Outpatient (CLI) | payer SELFPAY ==
[2020-03-02 10:02] LABS: Hemoglobin A1C% w Est Avg Glu 7.2 % (4.0-6.0)
[2020-03-02 10:07] LABS: Alanine Aminotransferase 31 IU/L (<35); Albumin 4.2 g/dL (3.5-5.0); Albumin Globulin Ratio 1.3 (1.0-2.8); Alkaline Phosphatase 86 U/L (38-126); Aspartate Aminotransferase 21 IU/L (14-36); BUN Creatinine Ratio 19.6 (6-22); Bilirubin Total 0.4 mg/dL (0.2-1.3); Blood Urea Nitrogen 11 mg/dL (7-17); Calcium 9.1 mg/dL (8.4-10.2); Carbon Dioxide 29 mmol/L (22-32); Chloride 105 mmol/L (98-107); Cholesterol 225 mg/dL (140-199); Creatinine Urine Random 158.2 mg/dL; Estimated Glomerular Filt Rate > 60.0 mL/min (>60); Globulin 3.3 g/dL (1.7-4.1); Glucose 152 mg/dL (70-100); HDL Cholesterol 42 mg/dL (40-60); HEMOLYSIS < 15 (0-50); LDL Cholesterol Calculated 133 mg/dL (<100); Potassium 4.5 mmol/L (3.4-5.1); Sodium 138 mmol/L (137-145); Total Protein 7.5 g/dL (6.3-8.2); Triglycerides 251 mg/dL (35-150)
[2020-03-02 10:11] LABS: Microalbumi Creatinin Ratio Ur 9.4 ug/mg CR (<30); Microalbumin Urine Random 1.5 mg/dL (0-1.6)
== END ==
PROVIDERS: Family Provider Family Medicine; PCP Family Medicine; Referring Provider Family Medicine; Visit Provider Family Medicine
DX: E11.9 Type 2 diabetes mellitus without complications (principal)
CPT/HCPCS: 36415; 80053; 80061; 82043; 82570; 83036

== ENCOUNTER → 2020-03-03 13:57 | Outpatient (CLI) | payer SELFPAY ==
--- NOTE | 2020-03-03 14:44 | DI.US.S_ITS ---
Patient Name: RYAN VIDALES date: 1990 Sex: F Attending Physician: Luis Alberto Indications: Date: 03/03/2020 14:55 At the request of: YONNY RICHARDS Procedure: US breast LT limited LIMITED ULTRASOUND OF LEFT BREAST AND AXILLA: 03/03/2020 CLINICAL: Palpable left breast lump. No prior exams were available for comparison. Color flow and real-time ultrasound of the left breast axilla were performed on the areas of interest. There is a 5.2 cm x 1.1 cm x 5.5 cm oval mass with a circumscribed margin in the left breast at 5 o'clock posterior depth. This oval mass is isoechoic with a well-defined boundary. This correlates as palpated. Color flow imaging demonstrates that there is no increase in vascularity. No significant abnormalities were seen sonographically in the left axilla. IMPRESSION: PROBABLY BENIGN The 5.2 cm x 1.1 cm x 5.5 cm oval mass in the left breast likely represents a lipoma and is probably benign. A follow-up ultrasound in 6 months is recommended. A follow-up ultrasound in 6 months is recommended to demonstrate stability. This exam was interpreted at Station ID: [id number]. Electronically Signed By: Tai urena/:03/03/2020 15:30:53 letter sent: Followup Recommended Ultrasound BI-RADS: 3 Probably benign
== END ==
PROVIDERS: Family Provider Family Medicine; PCP Family Medicine; Referring Provider Family Medicine; Visit Provider Family Medicine
DX: N63.23 Unspecified lump in the left breast, lower outer quadrant (principal)
CPT/HCPCS: 76642

== ENCOUNTER → 2020-04-14 15:05 | Outpatient (CLI) | payer SELFPAY ==
[2020-04-14 16:13] LABS: COVID19 -Nasal RAPID Negative (Negative)
== END ==
PROVIDERS: Family Provider Family Medicine; PCP Family Medicine; Visit Provider Family Medicine
DX: Z20.822 Contact with and (suspected) exposure to COVID-19 (principal)
CPT/HCPCS: 87635

== ENCOUNTER → 2020-08-02 07:45 | Outpatient (CLI) | payer SELFPAY ==
[2020-08-02 08:42] LABS: Appearance Urine UA SL CLOUDY; Bilirubin Urine UA NEGATIVE (NEGATIVE); Color Urine UA YELLOW; Glucose Urine UA NEGATIVE (Negative); Ketones Urine UA NEGATIVE (NEGATIVE); Leukocyte Esterase Urine UA NEGATIVE (NEGATIVE); Nitrite Urine UA NEGATIVE (Negative); Occult Blood Urine UA NEGATIVE (Negative); Protein Urine UA NEGATIVE (Negative); Specific Gravity Urine UA 1.025 (1.000-1.035); Urobilinogen Urine UA 0.2 E.U./dL (0.2)
[2020-08-02 08:46] LABS: Hemoglobin A1C% w Est Avg Glu 7.9 % (4.0-6.0)
[2020-08-02 08:55] LABS: RBC Urine 0-1/HPF (0-5/HPF); Squamous Epithelial Cell Urine 1-5 /HPF (0-5/HPF); WBC Urine 0-1/HPF (0-5/HPF)
[2020-08-02 08:56] LABS: Bacteria Urine Few (2-10); Culture Indicated Urine Cult Not Indicated
== END ==
PROVIDERS: Family Provider Family Medicine; PCP Family Medicine; Referring Provider Family Medicine; Visit Provider Family Medicine
DX: E11.9 Type 2 diabetes mellitus without complications (principal); R10.9 Unspecified abdominal pain
CPT/HCPCS: 36415; 81001; 83036

== ENCOUNTER → 2020-08-19 09:10 | Outpatient (CLI) | payer SELFPAY ==
--- NOTE | 2020-08-19 09:13 | DI.US.S_ITS ---
LIMITED ULTRASOUND OF LEFT BREAST AND AXILLA: 08/19/2020 CLINICAL: Patient returns today to evaluate a focal asymmetry in the left breast. Comparison is made to exam dated: 03/03/2020 [facility]. Color flow and real-time ultrasound of the left breast 5 o'clock, and axilla regions were performed. Shetty scale images of the real-time examination were reviewed. There is a stable 5.6 cm x 4.6 cm x 1.5 cm oval mass with a circumscribed margin in the left breast at 5 o'clock posterior depth 7 cm from the nipple. This oval mass is isoechoic with no posterior acoustic shadowing or enhancement. This correlates as palpated. Color flow imaging demonstrates that there is a small amount of internal vascularity present. No significant abnormalities were seen sonographically in the left axilla. IMPRESSION: PROBABLY BENIGN The 5.6 cm oval mass in the left breast is stable and most likely is a fat lobule, a lipoma and is probably benign. A follow-up left ultrasound in 6 months is recommended to demonstrate continued stability. Findings and recommendations were conveyed to the patient at time of exam. This exam was interpreted at Station ID: [id number]. Electronically Signed By: Nadia santana/:08/19/2020 10:30:05 letter sent: Followup Recommended Ultrasound BI-RADS: 3 Probably benign
== END ==
PROVIDERS: Family Provider Family Medicine; PCP Family Medicine; Referring Provider Family Medicine; Visit Provider Family Medicine
DX: N63.0 Unspecified lump in unspecified breast (principal)
CPT/HCPCS: 76642

== ENCOUNTER 2021-02-16 20:09 | Emergency (ER) | payer OTHER, SELFPAY ==
[2021-02-16] VITALS (13 sets, daily range): BP systolic 112–118; BP diastolic 57–60; PULSE 105–138; RESP 18–29; TEMP 36.8–39.6; O2SAT 94–98; BMI 46.0
--- NOTE | 2021-02-16 20:21 | DI.RAD.S_ITS ---
PROCEDURE: XR CHEST 1V INDICATIONS: suspected sepsis TECHNIQUE: One view of the chest was acquired. COMPARISON: None. FINDINGS: Surgical changes and devices: None. Lungs and pleura: There are mild ill-defined airspace opacities involving the bilateral lung bases more pronounced on the left. No focal consolidations. No pneumothorax or pleural effusion. Mediastinum: Mediastinal contours appear normal. Heart size is normal. Bones and chest wall: No suspicious bony lesions. Overlying soft tissues appear unremarkable. IMPRESSION: Mild ill-defined bibasilar airspace opacities possibly representing atelectasis versus early developing pneumonia. Recommend follow up chest radiograph 4-6 weeks after treatment to document resolution of findings and/or return to baseline examination. Dictated by: Alexander Kirkland M.D. on 02/16/2021 at 21:12 Approved by: Alexander Kirkland M.D. on 02/16/2021 at 21:13
[2021-02-16 20:46] LABS: Pregnancy Test Urine Negative (Negative)
[2021-02-16] MEDS: ACETAMINOPHEN 325 MG TABLET 975 MG PO (20:52)
[2021-02-16] MEDS: ONDANSETRON 4 MG/2 ML INJ IV (20:52)
[2021-02-16] MEDS: SODIUM CHLORIDE 0.9% 1,000 ML 1000 ML IV ×2 (20:54→23:15)
[2021-02-16 21:15] LABS: COVID19 -Nasal RAPID Negative (Negative)
[2021-02-16 21:17] LABS: Alanine Aminotransferase 56 IU/L (<35); Albumin 4.5 g/dL (3.5-5.0); Albumin Globulin Ratio 1.3 (1.0-2.8); Alkaline Phosphatase 89 U/L (38-126); Aspartate Aminotransferase 28 IU/L (14-36); BUN Creatinine Ratio 11.9 (6-22); Bilirubin Total 0.8 mg/dL (0.2-1.3); Blood Urea Nitrogen 8 mg/dL (7-17); Calcium 9.7 mg/dL (8.4-10.2); Carbon Dioxide 27 mmol/L (22-32); Chloride 98 mmol/L (98-107); Estimated Glomerular Filt Rate > 60.0 mL/min (>60); Globulin 3.5 g/dL (1.7-4.1); Glucose 220 mg/dL (70-100); HEMOLYSIS < 15 (0-50); Lipase 41 U/L (23-300); Potassium 3.9 mmol/L (3.4-5.1); Sodium 135 mmol/L (137-145)
[2021-02-16 21:18] LABS: Lactate (Lactic Acid) 1.7 mmol/L (0.7-2.1)
--- NOTE | 2021-02-16 21:21 | ED_ITS ---
HPI - General Adult General Chief complaint: Fever Stated complaint: states high pulse rate Time Seen by Provider: 02/16/21 21:14 Source: patient Mode of arrival: Ambulatory History of Present Illness HPI narrative: 31-year-old female who is a [id number] diabetic who is here for evaluation of several days of worsening abdominal discomfort, urinary frequency, nausea and vomiting, feeling like her heart is beating fast. She has had fevers at home. Did take some Tylenol earlier in the day. No change in bowel habits. Describes tenderness on the right side of her abdomen. New sure issue breath. Is having some headaches and generalized malaise Related Data Previous Rx's Medication Instructions Recorded hydroxyzine HCl 25 mg tablet 25 mg PO TID PRN #30 tab 01/27/19 Pen [place] #100 each 04/21/19 metformin 1,000 mg tablet 1,000 mg PO BID #180 tab 08/09/20 glyburide 5 mg tablet 10 mg PO DAILY #60 tab 12/06/20 ondansetron 4 mg disintegrating 4 mg PO Q6H PRN #10 tab 02/17/21 tablet sulfamethoxazole 800 1 tab PO BID 14 Days #28 tab 02/17/21 mg-trimethoprim 160 mg tablet (Bactrim DS) Allergies Allergy/AdvReac Type Severity Reaction Status Date / Time Penicillins [PENICILLINS] Allergy Unknown Verified 08/09/20 08:44 Review of Systems Constitutional Constitutional: Reports body ache(s), Reports chills, Reports fatigue, Reports fever(s) and Reports lethargy Cardiovascular Cardiovascular: Denies chest pain, Reports rapid heart rate and Denies dyspnea Respiratory Respiratory: Denies dyspnea Gastrointestinal Gastrointestinal: Reports abdominal pain, Denies change in bowel habits, Reports nausea and Reports vomiting Genitourinary Genitourinary: Reports system reviewed and no additional complaints, except as documented and Reports as per HPI Musculoskeletal Musculoskeletal: Reports system reviewed and no additional complaints, except as documented Integumentary/Breasts Skin/Breast: Reports system reviewed and no additional complaints, except as documented Neurologic Neurologic: Reports system reviewed and no additional complaints, except as documented Endocrine Endocrine: Reports fatigue Hematologic/Lymphatic On Anticoagulants: No Allergic/Immunologic Allergic/Immunologic: Reports system reviewed and no additional complaints, except as documented Patient History Medical History Anemia (2006) Anxiety (2010) Chicken pox (1998) Diabetes mellitus (2018) Irregular periods/menstrual cycles (2010) Migraines (2006) Ovarian cyst (2003) Surgical History Anesthesia Hx of cholecystectomy (2014) Family History Grandfather Heart disease Hypertension High cholesterol Diabetes mellitus Grandmother Heart disease Diabetes mellitus Mother Age: 53 Hypertension High cholesterol Diabetes mellitus Father Diabetes mellitus Grandfather No problems noted. Grandmother Diabetes mellitus Social History pets and animals: Yes education level: high school occupational status: student robert/scientologist: Hinduism seatbelt use: always working smoke detector in home: Yes fire extinguisher in home: Yes firearms in home: No Smoking Status: Former smoker Smokeless tobacco user: other quit status: quit date established alcohol intake: current substance use type: does not use during the past year weight has: increased > 10 lbs well-balanced diet: about half the time daily servings fruits/ve-4 caffeine: No eating out: rarely or never Type(s) of exercise: additional frequency: 1-2 times per week duration: 15-30 minutes/day additional social history: Rare/occasional alcohol use Smoking Status: Former smoker alcohol intake frequency: other Substance Use Type: does not use Exam Initial Vital Signs Initial Vital Signs: Vital Signs Temperature 103.3 F H 02/16/21 20:23 Pulse Rate 138 H 02/16/21 20:23 Respiratory Rate 18 02/16/21 20:23 Pulse Oximetry 97 02/16/21 20:23 Const General: cooperative, comfortable and well developed Limitations: mental status not altered HENMT Head: normal to inspection and normocephalic Resp Effort & Inspection: normal respiratory effort Auscultation: clear to auscultation bilaterally Cardio Rate: tachycardic Rhythm: regular rhythm GI Inspection: non-distended Palpation: soft, No firm and tender (Right-sided abdomen) Back/Spine/Pelvis Back: CVA tenderness right Skin Lesions: no lesions Rashes: no rashes Neuro General: patient alert, patient awake, patient oriented x3 and moves all extremities Extrem General: capillary refill normal Psych Appearance: grossly normal and well kempt Course Orders Ordered: ED Orders 02/16/21 20:55 Complete Blood Count AUTO DIFF Stat Comprehensive Metabolic Panel Stat Lactate (Lactic Acid) Stat Lipase Stat Procalcitonin Stat 02/16/21 21:09 Blood Culture Stat 02/16/21 22:09 CT abdomen pelvis w con Stat Discontinued Medications Acetaminophen (Acetaminophen 325 Mg Tablet) 975 mg PO NOW ONE Stop: 02/16/21 20:49 Last Admin: 02/16/21 20:52 Dose: 975 mg Documented by: BLANCO Sodium Chloride (Normal Saline 0.9%) 1,000 mls @ 1,000 mls/hr IV BOLUS ONE Stop: 02/16/21 21:20 Last Infusion: 02/16/21 23:10 Dose: 0 mls/hr Documented by: Admin: 02/16/21 20:54 Dose: 1,000 mls/hr Documented by: BLANCO Ceftriaxone Sodium 1,000 mg/ (Sodium Chloride) 100 mls @ 200 mls/hr IV NOW ONE Stop: 02/16/21 21:27 Last Infusion: 02/16/21 23:11 Dose: 0 mls/hr Documented by: Admin: 02/16/21 22:14 Dose: 200 mls/hr Documented by: ROCIO Sodium Chloride (Normal Saline 0.9%) 1,000 mls @ 1,000 mls/hr IV BOLUS ONE Stop: 02/17/21 00:09 Last Infusion: 02/17/21 00:37 Dose: 0 mls/hr Documented by: Admin: 02/16/21 23:15 Dose: 1,000 mls/hr Documented by: ROCIO Ondansetron HCl (Ondansetron 4 Mg/2 Ml Inj) 4 mg IV NOW ONE Stop: 02/16/21 20:49 Last Admin: 02/16/21 20:52 Dose: 4 mg Documented by: BLANCO Ondansetron HCl (Ondansetron 4 Mg Odt Prepack) 1 bottle MISC SEEINSTR ONE Stop: 02/17/21 00:43 Last Admin: 02/17/21 00:47 Dose: 1 bottle Documented by: ROCIO Vital Signs Vital signs: Vital Signs - 8 hr 02/16/21 22:00 02/16/21 22:18 12/01/21 22:30 Temperature Pulse Rate 119 H 118 H 112 H Respiratory Rate 20 29 H 23 Blood Pressure 118/58 L 117/60 Pulse Oximetry 95 94 94 02/16/21 22:45 02/16/21 23:00 02/16/21 23:10 Temperature 98.3 F Pulse Rate 112 H 109 H Respiratory Rate 28 H 21 Blood Pressure 112/57 L Pulse Oximetry 96 96 02/16/21 23:11 02/16/21 23:30 02/17/21 00:03 Temperature 98.3 F Pulse Rate 105 H 99 H Respiratory Rate 18 17 Blood Pressure 118/67 Pulse Oximetry 96 97 Medical Decision Making Lab Data Lab results reviewed: Yes I reviewed the patient's lab results. Result diagrams: 02/16/21 20:55 02/16/21 20:55 Labs: Lab Results 02/16/21 02/16/21 02/16/21 Range/Units 20:19 20:30 20:30 WBC (4.5-11.0) X10^3/uL RBC (4.0-5.2) X10^6/uL Hgb (12.0-16.0) g/dL Hct (36-46) % MCV (80-100) fL MCH (26-34) PG MCHC (30-36) % RDW (11.6-14.8) % Plt Count (150-400) X10^3/uL Neut % (Auto) (50-75) % Lymph % (Auto) (25-40) % [place] % (Auto) (3-14) % Eos % (Auto) (2-4) % Baso % (Auto) (0-2) % Neut # (Auto) (1847-3894) /uL Lymph # (Auto) (9212-2664) /uL [place] # (Auto) (0-900) /uL Eos # (Auto) (0-450) /uL Baso # (Auto) (0-100) /uL Sodium (137-145) mmol/L Potassium (3.4-5.1) mmol/L Chloride (98-107) mmol/L Carbon Dioxide (22-32) mmol/L BUN (7-17) mg/dL Creatinine (0.52-1.04) mg/dL Estimated GFR (>60) mL/min BUN/Creatinine Ratio (6-22) Glucose (70-100) mg/dL Lactate (0.7-2.1) mmol/L Calcium (8.4-10.2) mg/dL Total Bilirubin (0.2-1.3) mg/dL AST (14-36) IU/L ALT (<35) IU/L Alkaline Phosphatase (38-126) U/L Total Protein (6.3-8.2) g/dL Albumin (3.5-5.0) g/dL Globulin (1.7-4.1) g/dL Albumin/Globulin Ratio (1.0-2.8) Lipase (23-300) U/L Procalcitonin (<0.5) ng/mL Urine Color Yellow Urine Appearance Sl cloudy Urine pH 5.5 (4.5-8.0) Ur Specific [place] <=1.005 (1.000-1.035) Urine Protein Negative (Negative) Urine Glucose (UA) Negative (Negative) g/dL Urine Ketones Negative (NEGATIVE) Urine Occult Blood 2+ H (Negative) Urine Nitrate Negative (Negative) Urine Bilirubin Negative (NEGATIVE) Urine Urobilinogen 0.2 (0.2) E.U./dL Ur Leukocyte Esterase 2+ H (NEGATIVE) Urine RBC 0-1/hpf (0-5/HPF) Urine WBC >100/hpf H (0-5/HPF) Ur Squamous Epith Cells 1-5 /hpf (0-5/HPF) Urine Bacteria Many (>30) H (None) Ur Culture Indicated? Specimen cultured Urine Test Negative (Negative) SARS-CoV-2 (PCR) Negative (Negative) 02/16/21 02/16/21 02/16/21 Range/Units 20:55 20:55 20:55 WBC 19.3 H (4.5-11.0) X10^3/uL RBC 4.63 (4.0-5.2) X10^6/uL Hgb 13.0 (12.0-16.0) g/dL Hct 38.1 (36-46) % MCV 82.2 (80-100) fL MCH 28.0 (26-34) PG MCHC 34.0 (30-36) % RDW 13.8 (11.6-14.8) % Plt Count 257 (150-400) X10^3/uL Neut % (Auto) 83.7 H (50-75) % Lymph % (Auto) 8.2 L (25-40) % [place] % (Auto) 7.3 (3-14) % Eos % (Auto) 0.1 L (2-4) % Baso % (Auto) 0.7 (0-2) % Neut # (Auto) 88396 H (6858-1503) /uL Lymph # (Auto) 1600 (8903-6717) /uL [place] # (Auto) 1400 H (0-900) /uL Eos # (Auto) 0 (0-450) /uL Baso # (Auto) 100 (0-100) /uL Sodium 135 L (137-145) mmol/L Potassium 3.9 (3.4-5.1) mmol/L Chloride 98 (98-107) mmol/L Carbon Dioxide 27 (22-32) mmol/L BUN 8 (7-17) mg/dL Creatinine 0.67 (0.52-1.04) mg/dL Estimated GFR > 60.0 (>60) mL/min BUN/Creatinine Ratio 11.9 (6-22) Glucose 220 H (70-100) mg/dL Lactate 1.7 (0.7-2.1) mmol/L Calcium 9.7 (8.4-10.2) mg/dL Total Bilirubin 0.8 (0.2-1.3) mg/dL AST 28 (14-36) IU/L ALT 56 H (<35) IU/L Alkaline Phosphatase 89 (38-126) U/L Total Protein 8.0 (6.3-8.2) g/dL Albumin 4.5 (3.5-5.0) g/dL Globulin 3.5 (1.7-4.1) g/dL Albumin/Globulin Ratio 1.3 (1.0-2.8) Lipase 41 (23-300) U/L Procalcitonin 0.27 (<0.5) ng/mL Urine Color Urine Appearance Urine pH (4.5-8.0) Ur Specific [place] (1.000-1.035) Urine Protein (Negative) Urine Glucose (UA) (Negative) g/dL Urine Ketones (NEGATIVE) Urine Occult Blood (Negative) Urine Nitrate (Negative) Urine Bilirubin (NEGATIVE) Urine Urobilinogen (0.2) E.U./dL Ur Leukocyte Esterase (NEGATIVE) Urine RBC (0-5/HPF) Urine WBC (0-5/HPF) Ur Squamous Epith Cells (0-5/HPF) Urine Bacteria (None) Ur Culture Indicated? Urine Test (Negative) SARS-CoV-2 (PCR) (Negative) Imaging Data Chest x-ray: Radiologist's Impression: [address] [address] XRay Report Signed Patient: Aurora Pacheco MR#: [id number] : 1990 Acct:[id number] Age/Sex: 31 / F Date of Service: 02/16/21 Loc: ED Accession Number: [id number] ?? Procedure: XR chest 1V Ordering Provider: Tigre Baltazar D.O. PROCEDURE:? XR CHEST 1V ? INDICATIONS:? suspected sepsis ? TECHNIQUE:? One view of the chest was acquired.? ? COMPARISON:? None. ? FINDINGS:? ? Surgical changes and devices:? None.? ? Lungs and pleura:? There are mild ill-defined airspace opacities involving the bilateral lung bases more pronounced on the left.? No focal consolidations.? No pneumothorax or pleural effusion. ? Mediastinum:? Mediastinal contours appear normal.? Heart size is normal.? ? Bones and chest wall:? No suspicious bony lesions.? Overlying soft tissues appear unremarkable.? ? IMPRESSION:? Mild ill-defined bibasilar airspace opacities possibly representing atelectasis versus early developing pneumonia. ? Recommend follow up chest radiograph 4-6 weeks after treatment to document resolution of findings and/or return to baseline examination. ? ? Dictated by: Alexander Kirkland M.D. on 02/16/2021 at 21:12 ? ? Approved by: Alexander Kirkland M.D. on 02/16/2021 at 21:13?? CT scan - abdomen/pelvis: Radiologist's Impression: [address] [address] [address] Scan Report Signed Patient: Aurora Pacheco MR#: [id number] : 1990 Acct:[id number] Age/Sex: 31 / F Date of Service: 02/16/21 Loc: ED Accession Number: [id number] ?? Procedure: CT abdomen pelvis w con Ordering Provider: Tigre Baltazar D.O. PROCEDURE:? CT ABDOMEN PELVIS W CON ? INDICATIONS:? Right sided abdominal pain ? TECHNIQUE:? After the administration of intravenous contrast, axial sections acquired from the lung bases to the pubic symphysis.? Coronal and sagittal reformats were performed.? For radiation dose reduction, the following was used:? automated exposure control, adjustment of mA and/or kV according to patient size.? ? COMPARISON:? [facility], CT, CT ABDOMEN PELVIS W CON, 12/20/2017, 19:48. ? FINDINGS:? Image quality:? Excellent.? ? Lung bases:? Unremarkable. Heart:? No significant findings. ? ABDOMEN: Liver:? Diffuse fatty infiltration of the liver. Gallbladder:? Surgically absent. Biliary ducts:? Unremarkable.? ? Pancreas:? Unremarkable.? ? Spleen:? Unremarkable.? ? Adrenal Glands:? Unremarkable.? ? Kidneys and Ureters:? Mild right perinephric stranding is noted.? There is a 2.9 centimeter in diameter rounded focus of decreased attenuation/enhancement in the right kidney left kidney is normal in appearance. ? Stomach and Bowel:? Stomach, small bowel loops, and colon are unremarkable.? The appendix is normal. Peritoneum:? No abnormal intraperitoneal fluid.? No free air.? ? Ventral Wall: ? Small umbilical hernia. Abdominal Nodes:? No retroperitoneal or mesenteric adenopathy by size criteria.? Vessels:? Aorta and inferior vena cava are normal in size.? ? PELVIS: Pelvic Organs:? Unremarkable.? ? Bladder:? Unremarkable.? ? Pelvic Nodes: No enlarged lymph nodes.? Miscellaneous: No hernias are seen. ? ? ? Bones:? Unremarkable.? IMPRESSION:? ? 1. Mild right perinephric stranding possibly related to pyelonephritis.? Recommend correlation with clinical and laboratory data.? ? 2. 2.9 centimeter rounded focus of decreased enhancement in the right kidney which may represent inflammatory phlegmon associated with pyelonephritis, however developing abscess cannot be excluded by this study. ? 3. Hepatic steatosis. ? 4. Status post cholecystectomy.? ? ? Dictated by: Michaelle Lindsay MD, PhD on 02/16/2021 at 23:05 ? ? Approved by: Michaelle Lindsay MD, PhD on 02/16/2021 at 23:11?? ECG Data Attestation: I personally reviewed and interpreted this ECG as follows: Interpretation: Sinus tachycardia Ventricular rate 131 Right axis deviation Normal QRS Normal QTC No ST T wave change MDM Narrative Medical decision making narrative: Patient arrived tachycardic but was not hypotensive. She was also febrile. Was given Tylenol on fluids and this improved with her fevers and her tachycardia. She did feel better after this. Her urinalysis today concerning for urinary tract infection. Was given Rocephin. Cultures were obtained. CT scan shows findings consistent with pyelo. She is no longer nauseous. Not vomiting. Is tolerating oral intake. I did have discussion with her regarding her vital signs and her presentation and also the CT scan results. We did discuss the p otential of a developing abscess noted on the CT scan. There is no indication of any surgical consultation today. We did discuss either getting admitted to the hospital for IV antibiotics were being discharged home on oral antibiotics and returning if symptoms worsen. After this discussion the patient opted to be discharged home. Family is at bedside for this discussion. They do live very close to the hospital and stated that they can return if her symptoms get worse. We did discuss the use of Tylenol. Will treat her is pyelonephritis. Urine culture pending at the time of discharge. She expressed understanding and agreement this plan. Discharge Plan Departure Patient Disposition: Home Clinical Impression: Pyelonephritis Instructions: DI for Kidney Infection Activity Restrictions/Additional Instructions: Your CT scan and lab work today are consistent with a kidney infection. It is important that you take the antibiotics. Your next dose will be on morning. It was electronically transmitted to [facility]. If you start to worsen to include inability to tolerate oral intake, feeling poorly, worsening pain please return to the emergency department for further evaluation. Continue to take the rest of your medications as directed Prescriptions: New sulfamethoxazole-trimethoprim [Bactrim DS] 800-160 mg tablet 1 tab PO BID 14 Days Qty: 28 0RF ondansetron 4 mg tablet,disintegrating 4 mg PO Q6H PRN (Reason: nausea and vomiting) Qty: 10 0RF No Action hydroxyzine HCl 25 mg tablet 25 mg PO TID PRN (Reason: anxiety) Qty: 30 0RF metformin 1,000 mg tablet 1,000 mg PO BID Qty: 180 3RF (DME) Pen [place] Qty: 100 3RF Dose Instruction: As directed Rx Instructions: Please dispense pen needles to be used with Victoza insulin pen glyburide 5 mg tablet 10 mg PO DAILY Qty: 60 3RF Referrals: Shilpi Sahu MD [Primary Care Provider] -
[2021-02-16 21:22] LABS: Add Manual Diff / Slide Review NO; Basophils Absolute Auto 100 /uL (0-100); Basophils Percent Auto 0.7 % (0-2); Eosinophils Absolute Auto 0 /uL (0-450); Eosinophils Percent Auto 0.1 % (2-4); Hematocrit 38.1 % (36-46); Lymphocytes Absolute Auto 1600 /uL (1100-4500); Lymphocytes Percent Auto 8.2 % (25-40); Mean Corpuscular Volume 82.2 fL (80-100); Monocytes Absolute Auto 1400 /uL (0-900); Monocytes Percent Auto 7.3 % (3-14); Neutrophils Absolute Auto 16200 /uL (1500-7000); Neutrophils Percent Auto 83.7 % (50-75); Platelet Count 257 X10^3/uL (150-400); Red Blood Cell Count 4.63 X10^6/uL (4.0-5.2); Red Cell Distribution Width 13.8 % (11.6-14.8); White Blood Cell Count 19.3 X10^3/uL (4.5-11.0)
[2021-02-16 21:33] LABS: Procalcitonin 0.27 ng/mL (<0.5)
[2021-02-16 21:54] LABS: Appearance Urine UA SL CLOUDY; Bilirubin Urine UA NEGATIVE (NEGATIVE); Color Urine UA YELLOW; Glucose Urine UA NEGATIVE (Negative); Ketones Urine UA NEGATIVE (NEGATIVE); Leukocyte Esterase Urine UA 2+ (NEGATIVE); Nitrite Urine UA NEGATIVE (Negative); Occult Blood Urine UA 2+ (Negative); Protein Urine UA NEGATIVE (Negative); Specific Gravity Urine UA <=1.005 (1.000-1.035); Urobilinogen Urine UA 0.2 E.U./dL (0.2)
[2021-02-16 21:55] LABS: pH Urine UA 5.5 (4.5-8.0)
[2021-02-16 22:04] LABS: Bacteria Urine Many (>30); RBC Urine 0-1/HPF (0-5/HPF); Squamous Epithelial Cell Urine 1-5 /HPF (0-5/HPF); WBC Urine >100/HPF (0-5/HPF)
[2021-02-16 22:05] LABS: Culture Indicated Urine Specimen Cultured
--- NOTE | 2021-02-16 22:09 | DI.CT.S_ITS ---
PROCEDURE: CT ABDOMEN PELVIS W CON INDICATIONS: Right sided abdominal pain TECHNIQUE: After the administration of intravenous contrast, axial sections acquired from the lung bases to the pubic symphysis. Coronal and sagittal reformats were performed. For radiation dose reduction, the following was used: automated exposure control, adjustment of mA and/or kV according to patient size. COMPARISON: [facility], CT, CT ABDOMEN PELVIS W CON, 12/20/2017, 19:48. FINDINGS: Image quality: Excellent. Lung bases: Unremarkable. Heart: No significant findings. ABDOMEN: Liver: Diffuse fatty infiltration of the liver. Gallbladder: Surgically absent. Biliary ducts: Unremarkable. Pancreas: Unremarkable. Spleen: Unremarkable. Adrenal Glands: Unremarkable. Kidneys and Ureters: Mild right perinephric stranding is noted. There is a 2.9 centimeter in diameter rounded focus of decreased attenuation/enhancement in the right kidney left kidney is normal in appearance. Stomach and Bowel: Stomach, small bowel loops, and colon are unremarkable. The appendix is normal. Peritoneum: No abnormal intraperitoneal fluid. No free air. Ventral Wall: Small umbilical hernia. Abdominal Nodes: No retroperitoneal or mesenteric adenopathy by size criteria. Vessels: Aorta and inferior vena cava are normal in size. PELVIS: Pelvic Organs: Unremarkable. Bladder: Unremarkable. Pelvic Nodes: No enlarged lymph nodes. Miscellaneous: No hernias are seen. Bones: Unremarkable. IMPRESSION: 1. Mild right perinephric stranding possibly related to pyelonephritis. Recommend correlation with clinical and laboratory data. 2. 2.9 centimeter rounded focus of decreased enhancement in the right kidney which may represent inflammatory phlegmon associated with pyelonephritis, however developing abscess cannot be excluded by this study. 3. Hepatic steatosis. 4. Status post cholecystectomy. Dictated by: Michaelle Lindsay MD, PhD on 02/16/2021 at 23:05 Approved by: Michaelle Lindsay MD, PhD on 02/16/2021 at 23:11
[2021-02-16] MEDS: cefTRIAXone 1,000 MG in SODIUM CHLORIDE 0.9% 100 ML 200 ML IV (22:14)
[2021-02-17 00:03] VITALS: BP 118/67; PULSE 99; RESP 17; O2SAT 97
[2021-02-17] MEDS: ONDANSETRON 4 MG ODT PREPACK 1 BOTTLE MISC (00:47)
[2021-02-17 12:11] LABS: Acinetobacter baumannii Not Detected (Not Detect); Enterococcus species Not Detected (Not Detect); KPC (carbapenem-resist gene) Not Detected (Not Detect); Listeria monocytogenes Not Detected (Not Detect); Methicillin-resistant gene Not Detected (Not Detect); Staphylococcus species Not Detected (Not Detect); Streptococcus agalactiae (Gr B Not Detected (Not Detect); Streptococcus pneumonia Not Detected (Not Detect); Streptococcus pyogenes (Gr A) Not Detected (Not Detect); Streptococcus species Not Detected (Not Detect); Vancomycin-rest genes A/B Not Detected (Not Detect)
[2021-02-17 12:12] LABS: Candida albicans Not Detected (Not Detect); Candida glabrata Not Detected (Not Detect); Candida krusei Not Detected (Not Detect); Candida parapsilosis Not Detected (Not Detect); Candida tropicalis Not Detected (Not Detect); E. coli Detected (Not Detect); Enterobacter cloacae complex Not Detected (Not Detect); Enterobacteriaceae species Detected (Not Detect); Haemophilus influenzae Not Detected (Not Detect); Neisseria meningitidis Not Detected (Not Detect); Proteus species Not Detected (Not Detect); Pseudomonas aeruginosa Not Detected (Not Detect); Serratia marcescens Not Detected (Not Detect)
== END 2021-02-17 00:53 | disposition home or self-care (01) ==
PROVIDERS: Emergency Provider Emergency Medicine; Family Provider Family Medicine; PCP Family Medicine
DX: N12 Tubulo-interstitial nephritis, not specified as acute or chronic (principal); R00.0 Tachycardia, unspecified; Z20.822 Contact with and (suspected) exposure to COVID-19
CPT/HCPCS: 36415; 71045; 74177; 80053; 81001; 81025; 83605; 83690; 84145; 85025; 87040; 87077; 87086; 87150; 87186; 87205; 87635; 93005; 96361; 96365; 96375; 99284; C9803; J0696; J2405; Q9967

== ENCOUNTER → 2021-02-22 | Outpatient (CLI) | payer SELFPAY ==
--- NOTE | 2021-02-22 11:54 | DI.RAD.S_ITS ---
PROCEDURE: XR CHEST 2V INDICATIONS: pneumonia TECHNIQUE: 2 views of the chest were acquired. COMPARISON: [facility], CR, XR CHEST 1V, 02/16/2021, 20:16. FINDINGS: Surgical changes and devices: None. Lungs and pleura: No consolidation, pleural effusions or pneumothorax. Mediastinum: Mediastinal contours are normal. Heart size is normal. Bones and chest wall: No suspicious bony abnormalities. Soft tissues appear unremarkable. IMPRESSION: No acute cardiopulmonary abnormality. Dictated by: Eduardo Chilel M.D. on 02/22/2021 at 12:59 Approved by: Eduardo Chilel M.D. on 02/22/2021 at 13:00
== END ==
LOC: RAD 11:53
PROVIDERS: Family Provider Family Medicine; PCP Family Medicine; Referring Provider Family Medicine; Visit Provider Family Medicine
DX: J18.9 Pneumonia, unspecified organism (principal); N12 Tubulo-interstitial nephritis, not specified as acute or chronic; A41.9 Sepsis, unspecified organism; R50.9 Fever, unspecified
CPT/HCPCS: 36415; 71046; 87040

== ENCOUNTER → 2021-03-04 09:25 | Outpatient (CLI) | payer SELFPAY | PROVIDERS: Family Provider Family Medicine; PCP Family Medicine; Visit Provider Family Medicine | DX: R82.90 Unspecified abnormal findings in urine (principal) | CPT/HCPCS: 87086 ==

== ENCOUNTER → 2021-04-26 09:24 | Outpatient (CLI) | payer OTHER, SELFPAY ==
[2021-04-26 11:14] LABS: Hemoglobin A1C% w Est Avg Glu 7.6 % (4.0-6.0)
[2021-04-26 11:43] LABS: Estradiol, Total 30.6 pg/mL
[2021-04-27 06:09] LABS: Insulin Level Total 54.1 uIU/mL (2.6-24.9)
[2021-04-30 20:41] LABS: Percent Free Testosterone 2.76 % (0.50-2.80); Testosterone Free 2.17 ng/dL (0.10-0.85); Testosterone Total 78.5 ng/dL (10.0-55.0)
== END ==
PROVIDERS: Family Provider Family Medicine; PCP Family Medicine; Referring Provider Family Medicine; Visit Provider Family Medicine
DX: E28.2 Polycystic ovarian syndrome (principal); E11.9 Type 2 diabetes mellitus without complications
CPT/HCPCS: 36415; 82670; 83036; 83525; 84402; 84403

== ENCOUNTER → 2021-05-20 09:27 | Outpatient (CLI) | payer OTHER, SELFPAY ==
[2021-05-20 10:48] LABS: Cholesterol 246 mg/dL (140-199); HDL Cholesterol 46 mg/dL (40-60); LDL Cholesterol Calculated 150 mg/dL (<100); Triglycerides 249 mg/dL (35-150)
== END ==
PROVIDERS: Family Provider Family Medicine; PCP Family Medicine; Referring Provider Family Medicine; Visit Provider Family Medicine
DX: E11.9 Type 2 diabetes mellitus without complications (principal)
CPT/HCPCS: 36415; 80061

== ENCOUNTER → 2021-06-30 12:37 | Outpatient (CLI) | payer OTHER, SELFPAY ==
--- NOTE | 2021-06-30 12:38 | DI.US.S_ITS ---
LIMITED ULTRASOUND OF LEFT BREAST AND AXILLA: 06/30/2021 CLINICAL: 6 month follow-up of lipoma. Comparison is made to exams dated: 08/19/2020 ultrasound and 03/03/2020 [facility]. Color flow and real-time ultrasound of the left breast 5 o'clock, and axilla regions were performed. Shetty scale images of the real-time examination were reviewed. There is a 5.8 cm x 5.2 cm x 1.7 cm oval mass (previously 5.6 cm x 4.6 cm x 1.5 cm) with a circumscribed margin in the left breast at 5 o'clock posterior depth 5 cm from the nipple. This oval mass is isoechoic with no posterior acoustic shadowing or enhancement. This abnormality is not significantly changed and correlates as palpated. Color flow imaging demonstrates that there is vascularity present. No significant abnormalities were seen sonographically in the left axilla. IMPRESSION: PROBABLY BENIGN The 5.8 cm isoechoic mass in the left breast most likely a lipoma and is probably benign. A follow-up ultrasound in 8 months is recommended to demonstrate long-term 2 year stability. A mammogram at that time would also be helpful to document the mammographic appearance. Exam findings were conveyed to the patient. Patient is advised to monitor for significant change. Clinical follow-up as needed. This exam was interpreted at Station ID: [id number]. Electronically Signed By: Quique Lynch M.D. slc/:06/30/2021 13:13:30 letter sent: Followup Recommended Ultrasound BI-RADS: 3 Probably benign
[2021-06-30 15:21] LABS: BUN Creatinine Ratio 15.5 (6-22); Blood Urea Nitrogen 9 mg/dL (7-17); Calcium 9.5 mg/dL (8.4-10.2); Carbon Dioxide 29 mmol/L (22-32); Chloride 100 mmol/L (98-107); Estimated Glomerular Filt Rate > 60 mL/min (>60); Glucose 315 mg/dL (70-100); HEMOLYSIS < 15 (0-50); Potassium 4.4 mmol/L (3.4-5.1); Sodium 139 mmol/L (137-145)
[2021-06-30 15:41] LABS: Follicle Stimulating Hormone 5.73 mIU/mL; Luteinizing Hormone 9.26 mIU/mL; Progesterone, Total 0.54 ng/mL
[2021-06-30 15:52] LABS: Thyroid Stimulating Hormone 1.03 uIU/mL (0.47-4.68)
[2021-07-04 04:06] LABS: Estrogen 189 pg/mL (.)
[2021-07-07 16:07] LABS: Anti Mullerian Hormone 5.94 ng/mL (.)
== END ==
PROVIDERS: Family Provider Family Medicine; PCP Family Medicine; Referring Provider Family Medicine; Visit Provider Family Medicine
DX: N63.23 Unspecified lump in the left breast, lower outer quadrant (principal); E28.2 Polycystic ovarian syndrome; N91.2 Amenorrhea, unspecified
CPT/HCPCS: 36415; 76642; 80048; 82397; 82672; 83001; 83002; 84144; 84443

== ENCOUNTER → 2021-08-18 13:50 | Outpatient (CLI) | payer OTHER, SELFPAY ==
--- NOTE | 2021-08-18 13:51 | DI.US.S_ITS ---
PROCEDURE: US PELVIC COMPLETE INDICATIONS: PCOS TECHNIQUE: Real-time scanning was performed of the pelvic organs, with image documentation. Additional endovaginal scanning was necessary due to incomplete visualization of the adnexal and endometrial structures by transabdominal scanning. COMPARISON: [facility], US, PELVIC COMPLETE, 04/02/2017, 15:25. [facility], US, PELVIC COMPLETE, 04/20/2016, 14:10. [facility], CT, CT ABDOMEN PELVIS W CON, 02/16/2021, 22:31. FINDINGS: This study is limited by body habitus. Uterus: Uterus is anteverted and normal in size at 7.4 x 3.6 x 3.7 cm. The myometrium is homogeneous. The endometrium measures approximately 7 cm mm combined thickness. Ovaries: The right ovary measures 3.4 x 2.6 x 2.9 cm. The left ovary measures 3.2 x 2.3 x 3.3 cm. The ovaries have a normal sonographic appearance. Less than 12 follicles can be seen involving each ovary. No adnexal masses are seen. Other: No pathologic free abdominal or pelvic fluid. IMPRESSION: Limited study demonstrating normal appearing ovaries, without an excessive number of follicles to suggest polycystic ovarian syndrome. We strive to produce accurate, complete, and clear reports of imaging services. To assist us in improving patient care, this report was composed using standard report templates and voice recognition software. Therefore, it may contain abnormal punctuation, insertions and/or omissions. Occasional wrong-word or sound-alike substitutions may occur. Though we review the report and make efforts to correct it, we do recommend that the report be read carefully in proper context to recognize any text inaccuracies. Dictated by: Shivam Rodriguez M.D. on 08/18/2021 at 15:44 Approved by: Shivam Rodriguez M.D. on 08/18/2021 at 15:45
== END ==
PROVIDERS: Family Provider Family Medicine; PCP Family Medicine; Referring Provider Family Medicine; Visit Provider Family Medicine
DX: E28.2 Polycystic ovarian syndrome (principal)
CPT/HCPCS: 76830; 76856

== ENCOUNTER → 2022-04-03 14:23 | Outpatient (CLI) | payer OTHER, SELFPAY ==
--- NOTE | 2022-04-03 14:25 | DI.US.S_ITS ---
ULTRASOUND OF LEFT BREAST: 04/03/2022 CLINICAL: 6 month follow-up of lipoma. Comparison is made to exams dated: 06/30/2021 ultrasound, 08/19/2020 ultrasound, and 03/03/2020 ultrasound - [facility]. Color flow and real-time ultrasound of the left breast were performed. Shetty scale images of the real-time examination were reviewed. Redemonstration of previously described 5.9 cm x 5.3 cm x 2.6 cm oval mass with a circumscribed margin in the left breast at 5 o'clock posterior depth 5 cm from the nipple. This oval mass is isoechoic with no posterior acoustic shadowing or enhancement. This abnormality is not significantly changed and correlates as palpated. Color flow imaging demonstrates that there is vascularity present. IMPRESSION: INCOMPLETE: NEEDS ADDITIONAL IMAGING EVALUATION The 5.9 cm x 5.3 cm x 2.6 cm oval mass in the left breast most likely is a fat lobule or a lipoma and is probably benign. However, the patient was not able to have mammographic evaluation of this mass today which would be beneficial to evaluate its mammographic appearance prior to releasing the patient to routine evaluation as this mass has documented approximately two years of stability. Findings and recommendations were conveyed to the patient during today's evaluation. This exam was interpreted at Station ID: [id number]. Electronically Signed By: Alexander Kirkland M.D. at/:04/03/2022 15:29:59 letter sent: Additional Imaging Needed Ultrasound BI-RADS: 0 Indeterminate
== END ==
PROVIDERS: Family Provider Family Medicine; PCP Family Medicine; Referring Provider Family Medicine; Visit Provider Family Medicine
DX: N63.23 Unspecified lump in the left breast, lower outer quadrant (principal); R92.8 Other abnormal and inconclusive findings on diagnostic imaging of breast
CPT/HCPCS: 76642

== ENCOUNTER → 2022-04-07 12:04 | Outpatient (CLI) | payer OTHER, SELFPAY ==
[2022-04-07 14:01] LABS: Alanine Aminotransferase 75 IU/L (<35); Alkaline Phosphatase 100 U/L (38-126); Aspartate Aminotransferase 63 IU/L (14-36); BUN Creatinine Ratio 15.4 (6-22); Bilirubin Total 0.6 mg/dL (0.2-1.3); Blood Urea Nitrogen 8 mg/dL (7-17); Calcium 9.4 mg/dL (8.4-10.2); Carbon Dioxide 26 mmol/L (22-32); Chloride 98 mmol/L (98-107); Cholesterol 269 mg/dL (140-199); Estimated Glomerular Filt Rate > 60 mL/min (>60); Glucose 203 mg/dL (70-100); HDL Cholesterol 44 mg/dL (40-60); HEMOLYSIS < 15 (0-50); LDL Cholesterol Calculated 162 mg/dL (<100); Potassium 4.5 mmol/L (3.4-5.1); Sodium 138 mmol/L (137-145); Total Protein 7.7 g/dL (6.3-8.2); Triglycerides 317 mg/dL (35-150)
[2022-04-07 16:49] LABS: Albumin 4.4 g/dL (3.5-5.0); Albumin Globulin Ratio 1.3 (1.0-2.8); Globulin 3.3 g/dL (1.7-4.1)
[2022-04-07 20:01] LABS: Hemoglobin A1C% w Est Avg Glu 9.4 % (4.0-6.0)
== END ==
PROVIDERS: Family Provider Family Medicine; PCP Family Medicine; Referring Provider Family Medicine; Visit Provider Family Medicine
DX: E11.9 Type 2 diabetes mellitus without complications (principal)
CPT/HCPCS: 36415; 80053; 80061; 83036

== ENCOUNTER → 2022-05-01 11:46 | Outpatient (CLI) | payer OTHER, SELFPAY ==
--- NOTE | 2022-05-01 11:50 | DI.US.S_ITS ---
PROCEDURE: US ABDOMEN LIMITED INDICATIONS: 6MO FOLLOW UP L BREAST MASS /ABNORMAL ENZYMES TECHNIQUE: Real-time focused scanning was performed of the abdomen, with image documentation. COMPARISON: [facility], CT, CT ABDOMEN PELVIS W CON, 02/16/2021, 22:31. [facility], US, US ABDOMEN COMPLETE, 12/20/2017, 17:20. FINDINGS: The liver demonstrates enlarged size. The liver demonstrates generalized moderately increased echogenicity. This decreases ultrasound sensitivity for detection of hepatic masses. The main portal vein demonstrates normal size and demonstrates normal appearing, hepatopetal flow. This patient is status post cholecystectomy. There is no biliary dilatation, the common bile duct measures 6-7 mm. Pancreas is not seen. This study is limited by body habitus and overlying bowel gas. IMPRESSION: An enlarged, fatty liver can be seen. Status post cholecystectomy, without biliary dilatation. Dictated by: Shivam Rodriguez M.D. on 05/01/2022 at 16:12 Approved by: Shivam Rodriguez M.D. on 05/01/2022 at 16:13
--- NOTE | 2022-05-01 11:51 | DI.MG.S_ITS ---
BILATERAL DIGITAL DIAGNOSTIC MAMMOGRAM 3D/2D: 05/01/2022 CLINICAL: Short term follow of the Left breast mass. Base line Mammogram. Comparison is made to exams dated: 04/03/2022 ultrasound, 06/30/2021 ultrasound, 08/19/2020 ultrasound, and 03/03/2020 ultrasound - [facility]. There are scattered areas of fibroglandular density in both breasts (category b / 25%-50% glandular tissue). No significant masses, calcifications, or other findings are seen in either breast. No mass is appreciated at the left breast palpable abnormality where an isoechoic mass has been seen on ultrasound. IMPRESSION: BENIGN There is no mammographic evidence of malignancy. Left breast lipoma seen only on prior ultrasound is benign. Exam findings were conveyed to the patient. Patient is advised to monitor for significant change. Clinical follow-up as needed. Return to annual mammogram screening schedule is recommended to commence at age 42. This exam was interpreted at Station ID: [id number]. NOTE: For mammograms, a report in lay terms will be sent to the patient. Approximately 15% of breast malignancies will not be visualized mammographically. In the management of a palpable breast mass, a negative mammogram must not discourage biopsy of a clinically suspicious lesion. Electronically Signed By: Quique Lynch M.D. [facility] [place]/:05/01/2022 12:44:22 letter sent: Normal Exam ACR BI-RADS Category 2: Benign Finding(s) 3342F
[2022-05-01 12:33] LABS: Hemoglobin A1C% w Est Avg Glu 8.7 % (4.0-6.0)
[2022-05-01 12:46] LABS: Appearance Urine UA CLEAR; Bilirubin Urine UA NEGATIVE (NEGATIVE); Color Urine UA YELLOW; Glucose Urine UA TRACE g/dL (Negative); Ketones Urine UA NEGATIVE (NEGATIVE); Leukocyte Esterase Urine UA NEGATIVE (NEGATIVE); Nitrite Urine UA NEGATIVE (Negative); Occult Blood Urine UA NEGATIVE (Negative); Protein Urine UA NEGATIVE (Negative); Urobilinogen Urine UA 0.2 E.U./dL (0.2)
[2022-05-01 12:52] LABS: pH Urine UA 7.5 (4.5-8.0)
[2022-05-01 12:53] LABS: Bacteria Urine None Seen; Culture Indicated Urine Cult Not Indicated; RBC Urine None Seen (0-5/HPF); Squamous Epithelial Cell Urine 5-10 /HPF (0-5/HPF); WBC Urine None Seen (0-5/HPF)
[2022-05-01 12:59] LABS: Creatinine Urine Random 79.4 mg/dL
[2022-05-01 13:02] LABS: Alanine Aminotransferase 63 IU/L (<35); Albumin 4.3 g/dL (3.5-5.0); Albumin Globulin Ratio 1.2 (1.0-2.8); Alkaline Phosphatase 91 U/L (38-126); Aspartate Aminotransferase 39 IU/L (14-36); Bilirubin Total 0.4 mg/dL (0.2-1.3); Blood Urea Nitrogen 6 mg/dL (7-17); Carbon Dioxide 28 mmol/L (22-32); Chloride 100 mmol/L (98-107); Estimated Glomerular Filt Rate > 60 mL/min (>60); Globulin 3.5 g/dL (1.7-4.1); Glucose 203 mg/dL (70-100); HEMOLYSIS < 15 (0-50); Potassium 3.9 mmol/L (3.4-5.1); Sodium 140 mmol/L (137-145); Total Protein 7.8 g/dL (6.3-8.2)
[2022-05-01 13:04] LABS: Microalbumi Creatinin Ratio Ur 7.5 ug/mg CR (<30); Microalbumin Urine Random 0.6 mg/dL (0-1.6)
== END ==
PROVIDERS: Family Provider Family Medicine; PCP Family Medicine; Referring Provider Family Medicine; Visit Provider Family Medicine
DX: R92.8 Other abnormal and inconclusive findings on diagnostic imaging of breast; D17.79 Benign lipomatous neoplasm of other sites; R74.8 Abnormal levels of other serum enzymes; E11.9 Type 2 diabetes mellitus without complications; K76.0 Fatty (change of) liver, not elsewhere classified; Z90.49 Acquired absence of other specified parts of digestive tract
CPT/HCPCS: 76705; 77066; 80053; 81001; 82043; 82570; 83036; G0279

== ENCOUNTER 2022-05-29 21:19 | Emergency (ER) | payer OTHER, SELFPAY ==
[2022-05-29 21:38] VITALS: BP 139/97; PULSE 113; RESP 18; TEMP 36.8; O2SAT 97; BMI 44.9
--- NOTE | 2022-05-30 03:50 | ED_ITS ---
HPI - Back Pain/Injury General Chief Complaint: Back Pain/Injury Stated Complaint: lt. lower back/hip/leg pain Time Seen by Provider: 05/30/22 03:10 History of Present Illness HPI Narrative: Patient is a 32-year-old female history of diabetes hyperlipidemia, morbid obesity, presenting today with back pain on the left side. Starts in the left hip up. She thinks she injured it working but is not really sure. She feels like it has been spasming she is taken Tylenol without any relief. She has been stretching it and massaging it she was stretching it today and is simply tensed up and got significantly worse. It is going from her left buttock her back. She denies any numbness or tingling she feels like she sometimes has numbness down to her left leg. No weakness no changes in bowel or bladder habits. Related Data Previous Rx's Medication Instructions Recorded Pen Duchesne #100 ea 04/21/19 ondansetron 4 mg disintegrating 4 mg PO Q6H PRN nausea and 02/17/21 tablet vomiting #10 tabs ketoconazole 2 % topical cream 1 applic topical BID #60 grams 04/26/21 Pen Duchesne #50 ea 04/27/21 liraglutide 0.6 mg/0.1 mL (18 mg/3 See Rx Instructions SUBCUT 04/27/21 mL) subcutaneous pen injector .COMPLEX #6 mL (Victoza 2-Matt) medroxyprogesterone 10 mg tablet See Rx Instructions .Route 09/05/21 .COMPLEX #10 tabs spironolactone 25 mg tablet 25 mg PO BID #180 tabs 02/27/22 hydroxyzine HCl 25 mg tablet 25 mg PO TID PRN anxiety #30 tabs 04/07/22 metformin 1,000 mg tablet 1,000 mg PO BID #180 tabs 04/07/22 nystatin 100,000 unit/gram topical 1 applic topical BID #30 grams 04/11/22 powder glyburide 5 mg tablet See Rx Instructions .Route 05/08/22 .COMPLEX #60 tabs cyclobenzaprine 5 mg tablet 5 mg PO TID PRN muscle spasm #10 05/30/22 tabs hydrocodone 5 mg-acetaminophen 325 1 tab PO Q6H PRN pain #10 tabs 05/30/22 mg tablet Allergies Allergy/AdvReac Type Severity Reaction Status Date / Time Penicillins [PENICILLINS] Allergy Unknown Verified 05/29/22 21:41 ibuprofen Allergy Verified 05/29/22 21:41 Review of Systems Review of Systems ROS Unobtainable: All systems reviewed & are unremarkable except as noted in HPI and below Patient History Medical History (Updated 05/30/22 @ 04:07 by Jayde Springer DO) Anemia (2005) Anxiety (2009) Chicken pox (1998) Diabetes mellitus (2017) Irregular periods/menstrual cycles (2009) Migraines (2005) Ovarian cyst (2003) Surgical History Anesthesia Hx of cholecystectomy (2014) Family History Grandfather Heart disease Hypertension High cholesterol Diabetes mellitus Grandmother Heart disease Diabetes mellitus Mother Age: 55 Hypertension High cholesterol Diabetes mellitus Father Diabetes mellitus Grandfather No problems noted. Grandmother Diabetes mellitus Social History pets and animals: Yes education level: high school occupational status: student [employer]: [employer] seatbelt use: always working smoke detector in home: Yes fire extinguisher in home: Yes firearms in home: No Smoking Status: Former smoker Smokeless tobacco user: other quit status: quit date established alcohol intake: current substance use type: does not use during the past year weight has: increased > 10 lbs well-balanced diet: about half the time daily servings fruits/ve-4 caffeine: No eating out: rarely or never Type(s) of exercise: additional frequency: 1-2 times per week duration: 15-30 minutes/day additional social history: Rare/occasional alcohol use Smoking Status: Former smoker alcohol intake frequency: holidays/special occasions only Substance Use Type: does not use Exam Initial Vital Signs Initial Vital Signs: Vital Signs Temperature 98.2 F 05/29/22 21:38 Pulse Rate 113 H 05/29/22 21:38 Respiratory Rate 18 05/29/22 21:38 Blood Pressure 139/97 H 05/29/22 21:38 Pulse Oximetry 97 05/29/22 21:38 Oxygen Delivery Method Room Air 05/29/22 21:38 GENERAL: Alert 32-year-old female appears uncomfortable standing at counter trying to stretch CARDIOVASCULAR: peripheral pulses in tact, cap refill <2 sec RESPIRATORY: No respiratory distress, speaks in full sentences without difficulty BACK: No vertebral tenderness pain left lower lumbar left buttock region tender to palpation reproducible with touch EXTREMITIES: Normal range of motion, no clubbing or edema. Neurovascularly intact NEUROLOGICAL: Cranial nerves II through XII grossly intact. Normal gait and speech. SKIN: Warm, dry, no petechiae, no rashes or lesions. Course Orders Ordered: Discontinued Medications Hydrocodone Bitart/Acetaminophen (Hydrocodone/Acet 5/325 Prepack) 1 bottle MISC SEEINSTR ONE Stop: 05/30/22 04:02 Last Admin: 05/30/22 04:09 Dose: 1 bottle Documented By: [email or web address] Cyclobenzaprine HCl (Cyclobenzaprine 10 Mg Prepack) 1 bottle [facility] SEEIN[facility] ONE Stop: 05/30/22 04:02 Last Admin: 05/30/22 04:09 Dose: 1 bottle Documented By: KRZYSZTOF Ketorolac Tromethamine (Ketorolac 30 Mg/Ml Vial) 30 mg IM NOW ONE Stop: 05/30/22 04:02 Last Admin: 05/30/22 04:09 Dose: 30 mg Documented By: KRZYSZTOF Vital Signs Vital signs: Vital Signs - 8 hr 05/29/22 21:38 05/30/22 04:18 Temperature 98.2 F Pulse Rate 113 H 97 H Respiratory Rate 18 18 Blood Pressure 139/97 H 123/85 Pulse Oximetry 97 97 Oxygen Delivery Method Room Air Room Air MDM - Back Pain/Injury MDM Narrative Medical decision making narrative: Patient 32-year-old female history of diabetes presenting today with back pain. She is obviously in pain she has tried stretching and massage home. Pain is reproducible with touch there is an obvious spasm. We talked about shot of Toradol, Motrin it is listed as an allergy. She reports that whenever she is had Motrin she has gone any infection. But at this time she is willing to try dose of Toradol.She tolerated it well without complication. He is definitely moving better after medication. This is unlikely a kidney stone or dissection based on injury and repr oducibility. Discharge Plan Departure Patient Disposition: Home Clinical Impression: Muscle spasm of back Instructions: DI for Back Spasm Activity Restrictions/Additional Instructions: *You have been diagnosed with back pain with spasm *What to do: At this time increase activity as tolerated. Heat stretching and massage all encouraged. *Continue to take medications as directed --> SENT TO [facility] [place] Flexeril 5 mg every 8 hours if needed for muscle spasm [place] 1 tablet every 6 hours if needed for severe pain *Follow up with your primary care provider in 2-3 days or call [phone] *Return to ER if you should have increasing pain numbness tingling weakness or any new, worsening or concerning symptoms CONTROLLED SUBSTANCE DISCHARGE (Narcotoic/benzodiazepine/Flexeril/Phenergan) 1. You have been prescribed narcotic medications, it does have acetaminophen/Tylenol/paracetamol in it, DO NOT TAKE MORE THAN 4,00mg in 24 hours of Tylenol. TRAMADOL DOES NOT CONTAIN TYLENOL 2. Please understand that we cannot provide further refills of narcotics, benzodiazepines or controlled substances through the ED and her pain management will need to be through your provider. 3. While on these medications you cannot drive or operate heavy machinery. 4. You cannot sign legal documents or perform any duties such as this. 5. As long as you're taking opiate pain medications he should also be taking a stool softener such as Colace, Dulcolax, MiraLAX or prune juice, to help avoid constipation. Prescriptions: New hydrocodone-acetaminophen 5-325 mg tablet 1 tab PO Q6H PRN (Reason: pain) Qty: 10 0RF cyclobenzaprine 5 mg tablet 5 mg PO TID PRN (Reason: muscle spasm) Qty: 10 0RF No Action ketoconazole 2 % cream 1 applic topical BID Qty: 60 2RF Victoza 2-Matt 0.6 mg/0.1 mL (18 mg/3 mL) pen injector See Rx Instructions SUBCUT .COMPLEX Qty: 6 12RF Hold Instructions: pt request Dose Instruction: 0.6 mg SUBCUT 14 days; administer week 1 of therapy Rx Instructions: 0.6 mg SUBCUT qd x 14 days; then 1.2 mg qd (DME) Pen Duchesne Qty: 50 0RF Hold Instructions: Home Medication placed on hold at Doctor's office Dose Instruction: As directed Rx Instructions: Please dispense pen needles to be used with Victoza insulin pen hydroxyzine HCl 25 mg tablet 25 mg PO TID PRN (Reason: anxiety) Qty: 30 3RF metformin 1,000 mg tablet 1,000 mg PO BID Qty: 180 1RF (DME) Pen Duchesne Qty: 100 3RF Hold Instructions: Home Medication placed on hold at Doctor's office Dose Instruction: As directed Rx Instructions: Please dispense pen needles to be used with Victoza insulin pen medroxyprogesterone 10 mg tablet See Rx Instructions .ROUTE .COMPLEX Qty: 10 2RF Dose Instruction: take 1 tablet by mouth once daily Rx Instructions: take 1 tablet by mouth once daily spironolactone 25 mg tablet 25 mg PO BID Qty: 180 3RF nystatin 100,000 unit/gram powder 1 applic topical BID Qty: 30 2RF glyburide 5 mg tablet See Rx Instructions .ROUTE .COMPLEX Qty: 60 5RF Dose Instruction: take 2 tablets by mouth once daily Rx Instructions: take 2 tablets by mouth once daily ondansetron 4 mg tablet,disintegrating 4 mg PO Q6H PRN (Reason: nausea and vomiting) Qty: 10 0RF Referrals: Shilpi Sahu MD [Primary Care Provider] - Stand Alone Forms: Patient Portal/API
[2022-05-30] MEDS: HYDROCODONE/ACET 5/325 PREPACK 1 BOTTLE MISC (04:09)
[2022-05-30] MEDS: KETOROLAC 30 MG/ML VIAL IM (04:09)
[2022-05-30] MEDS: CYCLOBENZAPRINE 10 MG PREPACK 1 BOTTLE MISC (04:09)
[2022-05-30 04:18] VITALS: BP 123/85; PULSE 97; RESP 18; O2SAT 97
== END 2022-05-30 04:31 | disposition home or self-care (01) ==
PROVIDERS: Emergency Provider Emergency Medicine; Family Provider Family Medicine; PCP Family Medicine
DX: M62.830 Muscle spasm of back (principal)
CPT/HCPCS: 96372; 99283; J1885

== ENCOUNTER → 2022-06-14 13:30 | Outpatient (CLI) | payer OTHER, SELFPAY ==
--- NOTE | 2022-06-14 13:31 | DI.MRI.S_ITS ---
PROCEDURE: MR LUMBAR SPINE WO CON INDICATIONS: Low back pain w/radiculopathy L4-L5-S1 TECHNIQUE: Noncontrast sagittal T1 spin echo and T2 fast echo, sagittal STIR, and T2 fast spin echo through the lumbar spine. In cases with scoliosis, additional coronal T2 fast spin echo may be performed. COMPARISON: None. FINDINGS: Image quality: Excellent. Alignment and Curvature: There is normal bony alignment. Bone Marrow: Marrow is of normal overall signal. No acute vertebral body compression fractures. Spinal Cord: Conus medullaris terminates at the L2 level. Visualized cord demonstrates normal signal and size. Paraspinous Soft Tissues: No paravertebral masses. T12-L1: Normal appearance. L1-L2: Normal appearance. L2-L3: Normal appearance. L3-L4: Normal appearance. L4-L5: Disc desiccation and minimal broad-based disc bulge. L5-S1: Normal appearance. IMPRESSION: Broad-based disc bulge and disc desiccation at L4-5. No spinal canal or neural foraminal narrowing. Dictated by: Dino Minor M.D. on 06/14/2022 at 15:14 Approved by: Dino Minor M.D. on 06/14/2022 at 15:20
== END ==
PROVIDERS: Family Provider Family Medicine; PCP Family Medicine; Referring Provider Physician Assistant; Visit Provider Physician Assistant
DX: M51.16 Intervertebral disc disorders with radiculopathy, lumbar region (principal); M62.830 Muscle spasm of back
CPT/HCPCS: 72148

== ENCOUNTER → 2022-07-03 10:25 | Outpatient (CLI) | payer OTHER, SELFPAY ==
[2022-07-03 12:05] LABS: Cholesterol 238 mg/dL (140-199); HDL Cholesterol 45 mg/dL (40-60); LDL Cholesterol Calculated 135 mg/dL (<100); Triglycerides 292 mg/dL (35-150)
== END ==
PROVIDERS: Family Provider Family Medicine; PCP Family Medicine; Referring Provider Family Medicine; Visit Provider Family Medicine
DX: E11.9 Type 2 diabetes mellitus without complications (principal)
CPT/HCPCS: 36415; 80061

== ENCOUNTER → 2022-10-30 07:46 | Outpatient (CLI) | payer OTHER, SELFPAY ==
[2022-10-31 02:57] LABS: x Labcorp Estim. Avg Glu (eAG) 220 mg/dL (.); x Labcorp Hemoglobin A1c 9.3 % (4.8-5.6)
== END ==
PROVIDERS: Family Provider Family Medicine; PCP Family Medicine; Referring Provider Family Medicine; Visit Provider Family Medicine
DX: E11.9 Type 2 diabetes mellitus without complications (principal)
CPT/HCPCS: 36415; 83036

== ENCOUNTER → 2022-11-02 09:58 | Outpatient (CLI) | payer OTHER, SELFPAY ==
--- NOTE | 2022-11-02 09:59 | DI.MG.S_ITS ---
UNILATERAL LEFT DIGITAL DIAGNOSTIC MAMMOGRAM 3D/2D: 11/02/2022 CLINICAL: Lipoma in the Left breast. Comparison is made to exams dated: 05/01/2022 mammogram, 04/03/2022 ultrasound, 06/30/2021 ultrasound, 08/19/2020 ultrasound, and 03/03/2020 ultrasound - [facility]. There are scattered areas of fibroglandular density in the left breast (category b / 25%-50% glandular tissue). There is a 4.1 cm oval fat containing mass with a circumscribed margin in the left breast lower outer quadrant. This mass corresponds to area of palpated concern and prior ultrasound mass. No other significant masses or calcifications are seen in the breast. IMPRESSION: INCOMPLETE: NEEDS ADDITIONAL IMAGING EVALUATION Left breast lower outer quadrant fat containing mass consistent with a benign lipoma. Finding corresponds to area of palpable concern. Recommend further evaluation with ultrasound. Based on the Tyrer Cuzick model (a risk assessment model) the patient's lifetime risk is 16.8% and her 10 year risk is 0.6%. According to the ACR, ACS, and NCCN guidelines, an annual breast MRI exam along with mammogram is recommended if the patient's lifetime risk is 20% or greater. This exam was interpreted at Station ID: [id number]. NOTE: For mammograms, a report in lay terms will be sent to the patient. Approximately 15% of breast malignancies will not be visualized mammographically. In the management of a palpable breast mass, a negative mammogram must not discourage biopsy of a clinically suspicious lesion. Electronically Signed By: Geraldine Cordon M.D. esb/:11/02/2022 15:12:13 ACR BI-RADS Category 0: Incomplete 3340F
--- NOTE | 2022-11-02 09:59 | DI.US.S_ITS ---
LIMITED ULTRASOUND OF LEFT BREAST: 11/02/2022 CLINICAL: Patient returns for additional imaging over a suspected mass in the left breast. Comparison is made to exams dated: 11/02/2022 mammogram, 05/01/2022 mammogram, 04/03/2022 ultrasound, 06/30/2021 ultrasound, 08/19/2020 ultrasound, and 03/03/[address] ultrasound - [facility]. Color flow and real-time ultrasound of the left breast 4-5 o'clock region were performed. There is a 4.0 cm x 2.5 cm x 3.2 cm oval isoechoic mass with a circumscribed margin in the left breast at 4 o'clock, 4 cm from the nipple. This mass corresponds to area of palpable concern. There is an adjacent similar appearing mass at 5 o'clock, 4 cm from the nipple measuring 2.4 cm x 2.1 cm x 2.7 cm. These findings correspond to fat containing mass seen on mammogram. Previously, this area appeared as a single mass measuring up to 5.9 cm on ultrasound 04/03/2022. IMPRESSION: BENIGN Left breast lipomas in the lower outer quadrant at 4 and 5 o'clock measuring 4.0 cm and 2.7 cm, respectively. These findings correspond to mammographic mass and area of palpable concern, and have increased in size since prior 04/03/2022 ultrasound. Findings are benign. No mammographic or sonographic evidence of malignancy. Recommend annual mammogram screening. Fidnings and recommendations were conveyed to the patient at the time of image completion. This exam was interpreted at Station ID: [id number]. Electronically Signed By: Geraldine banks/:11/02/2022 15:44:54 Entry: - 11/03/2022 11:45:04 letter sent: Normal Exam Ultrasound BI-RADS: 2 Benign
== END ==
PROVIDERS: Family Provider Family Medicine; PCP Family Medicine; Referring Provider Family Medicine; Visit Provider Family Medicine
DX: D17.1 Benign lipomatous neoplasm of skin and subcutaneous tissue of trunk (principal); R92.8 Other abnormal and inconclusive findings on diagnostic imaging of breast
CPT/HCPCS: 76642; 77065; G0279

== ENCOUNTER → 2023-02-26 09:28 | Outpatient (CLI) | payer OTHER, SELFPAY ==
[2023-02-26 10:48] LABS: Hemoglobin A1C% w Est Avg Glu 8.7 % (4.0-6.0)
== END ==
PROVIDERS: Family Provider Family Medicine; PCP Family Medicine; Referring Provider Family Medicine; Visit Provider Family Medicine
DX: E11.9 Type 2 diabetes mellitus without complications (principal)
CPT/HCPCS: 36415; 83036

== ENCOUNTER → 2023-04-17 14:57 | Outpatient (CLI) | payer OTHER, SELFPAY ==
[2023-04-17 15:44] LABS: Influenza A - CEPHEID Flu A NEGATIVE (NEGATIVE); Influenza B - CEPHEID Flu B POSITIVE (NEGATIVE); Respiratory Syncytial Virus Negative (Negative)
[2023-04-17 15:45] LABS: COVID-19 CEPHEID 4-PLEX PCR Negative (Negative)
== END ==
PROVIDERS: Family Provider Family Medicine; PCP Family Medicine; Visit Provider Student in an Organized Health Care Education/Training Program
DX: R05.1 Acute cough (principal)
CPT/HCPCS: 0241U

== ENCOUNTER → 2023-04-17 15:42 | Outpatient (CLI) | payer OTHER, SELFPAY ==
--- NOTE | 2023-04-17 15:46 | DI.RAD.S_ITS ---
PROCEDURE: XR CHEST 2V INDICATIONS: fevers/chills/productive painfulcough TECHNIQUE: 2 views of the chest were acquired. COMPARISON: [facility], CR, XR CHEST 2V, 02/22/2021, 11:57. FINDINGS: Surgical changes and devices: None. Lungs and pleura: Lungs are clear. No pleural effusions or pneumothorax. Mediastinum: Mediastinal contours are normal. Heart size is normal. Bones and chest wall: No suspicious bony abnormalities. Soft tissues appear unremarkable. IMPRESSION: No acute cardiopulmonary abnormality is seen. Dictated by: Andreia Cline M.D. on 04/17/2023 at 16:25 Approved by: Andreia Cline M.D. on 04/17/2023 at 16:26
== END ==
PROVIDERS: Family Provider Family Medicine; PCP Family Medicine; Referring Provider Student in an Organized Health Care Education/Training Program; Visit Provider Student in an Organized Health Care Education/Training Program
DX: R05.8 Other specified cough (principal); R52 Pain, unspecified; R50.9 Fever, unspecified; R53.83 Other fatigue
CPT/HCPCS: 0241U; 71046

== ENCOUNTER → 2023-05-28 08:14 | Outpatient (CLI) | payer OTHER, SELFPAY ==
[2023-05-28 10:34] LABS: Hemoglobin A1C% w Est Avg Glu 6.3 % (4.0-6.0)
[2023-05-28 10:47] LABS: Alanine Aminotransferase 27 IU/L (<35); Albumin 4.3 g/dL (3.5-5.0); Albumin Globulin Ratio 1.3 (1.0-2.8); Alkaline Phosphatase 68 U/L (38-126); Aspartate Aminotransferase 20 IU/L (14-36); Bilirubin Total 0.4 mg/dL (0.2-1.3); Blood Urea Nitrogen 14 mg/dL (7-17); Calcium 9.2 mg/dL (8.4-10.2); Carbon Dioxide 26 mmol/L (22-32); Chloride 106 mmol/L (98-107); Cholesterol 253 mg/dL (140-199); Estimated Glomerular Filt Rate > 60 mL/min (>60); Globulin 3.2 g/dL (1.7-4.1); Glucose 109 mg/dL (70-100); HDL Cholesterol 42 mg/dL (40-60); HEMOLYSIS < 15 (0-50); LDL Cholesterol Calculated 134 mg/dL (<100); Potassium 4.5 mmol/L (3.4-5.1); Sodium 139 mmol/L (137-145); Total Protein 7.5 g/dL (6.3-8.2); Triglycerides 385 mg/dL (35-150)
[2023-05-28 11:40] LABS: Creatinine Urine Random 173.1 mg/dL
[2023-05-28 11:42] LABS: Microalbumi Creatinin Ratio Ur 6.3 ug/mg CR (<30); Microalbumin Urine Random 1.1 mg/dL (0-1.6)
== END ==
PROVIDERS: Family Provider Family Medicine; PCP Family Medicine; Referring Provider Family Medicine; Visit Provider Family Medicine
DX: E11.9 Type 2 diabetes mellitus without complications (principal)
CPT/HCPCS: 36415; 80053; 80061; 82043; 82570; 83036

== ENCOUNTER 2023-10-03 11:57 | Day surgery (SDC) | payer OTHER, SELFPAY ==
[2023-09-26 13:39] VITALS: BMI 44.6
--- NOTE | 2023-10-02 08:41 | PM.HP.1 ---
History of Present Illness History of Present Illness Date Patient Seen: 10/03/23 Time Patient Seen: 14:58 Chief complaint: Left breast lumpectomy Narrative: 33 y.o woman with left breast mass benign here for lumpectomy. No interval change in health. [facility]LY [facility], [facility] Medical History Diabetes mellitus (2017) Ovarian cyst (2003) Anemia (2005) Chicken pox (1998) Anxiety (2009) Irregular periods/menstrual cycles (2009) Migraines (2005) Surgical History Anesthesia Hx of cholecystectomy (2014) Family History Grandfather Heart disease Hypertension High cholesterol Diabetes mellitus Grandmother Heart disease Diabetes mellitus Mother Age: 56 Hypertension High cholesterol Diabetes mellitus Father Diabetes mellitus Grandfather No problems noted. Grandmother Diabetes mellitus Social History marital status: number of children: 1 household members: spouse and children lives independently: Yes pets and animals: Yes education level: high school occupational status: employed and student [employer]: [employer] seatbelt use: always working smoke detector in home: Yes fire extinguisher in home: Yes firearms in home: No Smoking Status: Former smoker Smokeless tobacco user: other quit status: quit date established alcohol intake: current substance use type: does not use during the past year weight has: increased > 10 lbs well-balanced diet: about half the time daily servings fruits/ve-4 caffeine: No eating out: rarely or never Type(s) of exercise: additional frequency: 1-2 times per week duration: 15-30 minutes/day additional social history: Rare/occasional alcohol use Meds Home Medications and Allergies Home Medications Medication Instructions Recorded Confirmed Type ketoconazole 2 % topical cream 1 applic topical BID #60 grams 04/26/21 10/03/23 Rx sertraline 50 mg tablet 50 mg PO DAILY #90 tabs 03/05/23 10/03/23 Rx glyburide 5 mg tablet 10 mg (2 x 5 mg) PO BID #120 tabs 04/11/23 10/03/23 Rx metformin 1,000 mg tablet 1,000 mg PO BID #180 tabs 04/11/23 10/03/23 Rx nystatin 100,000 unit/gram topical 1 applic topical BID #30 grams 04/30/23 10/03/23 Rx powder gabapentin 300 mg capsule 600 mg (2 x 300 mg) PO ONCE PM for 05/28/23 10/03/23 Rx low back pain #180 caps hydroxyzine HCl 25 mg tablet 25 mg PO 3XD PRN for anxiety #30 06/27/23 10/03/23 Rx tabs tirzepatide 2.5 mg/0.5 mL 2.5 mg (0.5 mL) SUBCUT QWEEK #2 mL 07/31/23 10/03/23 Rx subcutaneous pen injector (Mounjaro) tirzepatide 5 mg/0.5 mL 7.5 mg (0.75 mL) SUBCUT QWEEK #2 mL 09/24/23 Rx subcutaneous pen injector (Mounjaro) Allergies Allergy/AdvReac Type Severity Reaction Status Date / Time Penicillins [PENICILLINS] Allergy Unknown Verified 10/03/23 13:43 ibuprofen Allergy Fever Verified 10/03/23 13:43 victoza AdvReac Intermediate injection Uncoded 10/03/23 13:43 reaction Exam Narrative Exam Narrative: Gen-Adult woman alert and oriented L breast mass marked with my initials. Assessment & Plan Assessment and plan (1) Left breast mass: Qualifiers: Breast mass location: lower outer quadrant Qualified Code(s): N63.23 - Unspecified lump in the left breast, lower outer quadrant Status: Acute Assessment & Plan narrative: 33F with L breast mass here for elective lumpectomy. Overview of the operation discussed. Operative risks including hemorrhage, infection, seroma , were discussed. She provides her consent to proceed. Time-Based Coding :: [TOTAL MINUTES] spent with patient and on the chart (including review of chart, obtaining history, exam, reviewing outside data, placing orders, documenting exam and treatment plan, and counseling patient) on [DATE].
--- NOTE | 2023-10-03 | PATH_ITS ---
[facility] Accession Number: [id number] No. of containers..01 Tissue . 01 Material submitted: . breast - LEFT BREAST MASS . 01 Diagnosis: LEFT BREAST, MASS, LUMPECTOMY: Mature adipose tissue with areas of dense fibrosis, consistent with benign lipoma. Negative for atypia or malignancy. [facility] 10/05/2023 1253 Local . 01 Electronically signed: . Angelica Clemons MD, Pathologist NPI- [id number] . 01 Gross description: . Received in formalin with two patient identifiers and left breast mass, are multiple lobulated soft tissue fragments with no skin identified weighing 75 grams and aggregating to 10.6 x 9.3 x 3.7 cm. Sectioning reveals yellow to white fibroadipose tissue with fibrous tissue occupying less than 10% of the cut surface. No distinct lesions are identified. Tunnel Mucker sections are submitted in A1-A4. . Specimen was removed on 10/03/2023, time not provided. Cold ischemic time cannot be calculated. Total fixation time is approximately 55 hours. ([id number]) /MRV 10/04/2023 1812 Local . 01 Pathologist provided ICD-10: N63.0 . 01 CPT . 856989 Specimen Comment: A courtesy copy of this report has been sent to [phone] Performed at: [address] [id number] MD Tai Velazquez MD Phone: [phone]
[2023-10-03 13:56] VITALS: BP 134/91; PULSE 92; RESP 16; TEMP 36.7; O2SAT 99; BMI 44.8
[2023-10-03] MEDS: LACTATED RINGERS 1,000 ML 21 ML IV (14:34)
[2023-10-03] MEDS: SCOPOLAMINE 1 PATCH TOP (15:08)
--- NOTE | 2023-10-03 15:08 | SUR.OPER ---
Supine on padded OR bed, head on pillow, arms secured on padded arm boards at <90 degrees abduction, legs uncrossed, safety belt at thigh, tape over blanket over lower legs.
[2023-10-03] MEDS: LACTATED RINGERS 1,000 ML 42 ML IV (15:22)
[2023-10-03] MEDS: CLINDAMYCIN 900 MG/50 ML PIGGYBACK 50 MG IV (15:30)
[2023-10-03] MEDS: BUPIVACAINE 0.5% (PF) 30 ML VIAL INJ (15:42)
--- NOTE | 2023-10-03 16:04 | P.OP_ITS ---
Operative Date/Time/Diagnoses Date of procedure: 10/03/23 Time of procedure: 16:06 Pre-op diagnosis: Left breast mass Post-op diagnosis: same Procedure & Clinicians Procedure: Left lumpectomy Same procedure as scheduled: Yes Indications: 43-year-old woman with an enlarging painful left breast mass imaging is suggestive of benign disease Surgeon: Akhil Ball Principal Secretary: Eliseo Camacho Anesthesia Type: General Operative Notes Findings: 8 cm soft tissue mass consistent with lipoma Specimen(s): other (Left breast mass) Estimated Blood Loss (mL): 20 Procedure in detail: Patient was brought to the operating room placed supine on the table. Bilateral lower extremity compression devices were applied. General anesthesia was induced she was intubated with a LMA. She received 900 mg of clindamycin prior to skin incision. She was prepped and draped in sterile fashion time-out was performed. 1% lidocaine was infiltrated into the skin of the inferior left breast over the area of concern. Incision was made and the subcutaneous tissue was divided. The mass was encountered approximately 8 cm in maximal diameter it was grasped and then it was dissected out circumferentially. Did come out in several pieces. Mass was then removed in its entirety and passed off the field as specimen, its appearance was consistent with a lipoma. Hemostasis was achieved. The subcutaneous tissue was closed with Vicryl suture and the skin closed with Dermabond. She emerged from anesthesia and transferred to recovery in stable condition. Complications: none Post-operative Condition: stable Disposition: same day surgery
[2023-10-03 16:16] VITALS: BP 123/73; PULSE 100; RESP 14; TEMP 37.1; O2SAT 98
[2023-10-03 16:21] VITALS: BP 130/74; PULSE 101; RESP 12; O2SAT 95
[2023-10-03 16:26] VITALS: BP 119/77; PULSE 95; RESP 14; O2SAT 97
[2023-10-03] MEDS: OXYCODONE IR 5 MG TABLET PO (16:30)
[2023-10-03 16:31] VITALS: BP 134/80; PULSE 97; RESP 14; TEMP 37.1; O2SAT 100
[2023-10-03 17:00] VITALS: BP 138/76; PULSE 89; RESP 16; O2SAT 99
== END 2023-10-03 17:05 | disposition home or self-care (01) ==
PROVIDERS: Family Provider Family Medicine; PCP Family Medicine; Referring Provider Surgery; Visit Provider Surgery
PROC: (CPT 19301; principal; 2023-10-03 13:45)
DX: D17.39 Benign lipomatous neoplasm of skin and subcutaneous tissue of other sites (principal)
CPT/HCPCS: 19120; J0330; J1100; J2250; J2405; J2704; J3010

== ENCOUNTER → 2024-04-28 09:16 | Outpatient (CLI) | payer OTHER, SELFPAY ==
[2024-04-28 10:35] LABS: Hemoglobin A1C% w Est Avg Glu 6.1 % (4.0-6.0)
[2024-04-28 10:52] LABS: Alanine Aminotransferase 28 IU/L (<35); Albumin 4.6 g/dL (3.5-5.0); Albumin Globulin Ratio 1.6 (1.0-2.8); Alkaline Phosphatase 81 U/L (38-126); Aspartate Aminotransferase 23 IU/L (14-36); BUN Creatinine Ratio 14.5 (6-22); Bilirubin Total 0.5 mg/dL (0.2-1.3); Blood Urea Nitrogen 9 mg/dL (7-17); Calcium 9.7 mg/dL (8.4-10.2); Carbon Dioxide 25 mmol/L (22-32); Chloride 102 mmol/L (98-107); Estimated Glomerular Filt Rate > 60 mL/min (>60); Globulin 2.9 g/dL (1.7-4.1); Glucose 275 mg/dL (70-100); HEMOLYSIS < 15 (0-50); Potassium 4.8 mmol/L (3.4-5.1); Sodium 136 mmol/L (137-145); Total Protein 7.5 g/dL (6.3-8.2)
[2024-04-28 11:40] LABS: Creatinine Urine Random 34.57 mg/dL
[2024-04-28 11:46] LABS: Microalbumin Urine Random < 0.6 mg/dL (0-1.6)
== END ==
PROVIDERS: Family Provider Family Medicine; PCP Family Medicine; Referring Provider Family Medicine; Visit Provider Family Medicine
DX: E11.9 Type 2 diabetes mellitus without complications (principal)
CPT/HCPCS: 36415; 80053; 82043; 82570; 83036

== ENCOUNTER → 2024-11-29 11:43 | Outpatient (CLI) | payer OTHER, SELFPAY ==
[2024-11-29 13:10] LABS: Hemoglobin A1C% w Est Avg Glu 6.1 % (4.0-6.0)
== END ==
PROVIDERS: Family Provider Family Medicine; PCP Family Medicine; Referring Provider Family Medicine; Visit Provider Family Medicine
DX: E11.9 Type 2 diabetes mellitus without complications (principal)
CPT/HCPCS: 36415; 83036

== ENCOUNTER 2024-12-17 13:03 | Emergency (ER) | payer OTHER, SELFPAY ==
[2024-12-17] VITALS (10 sets, daily range): BP systolic 113–140; BP diastolic 64–77; PULSE 72–88; RESP 8–25; TEMP 36.2; O2SAT 92–99; BMI 40.6
--- NOTE | 2024-12-17 13:18 | DI.RAD.S_ITS ---
PROCEDURE: XR CHEST 1V INDICATIONS: Chest Pain TECHNIQUE: One view of the chest was acquired. COMPARISON: [facility], CR, XR CHEST 2V, 04/17/2023, 15:56. [facility], CR, XR CHEST 2V, 02/22/2021, 11:57. FINDINGS: Surgical changes and devices: None. Lungs and pleura: Lungs are clear. No pleural effusions or pneumothorax. Mediastinum: Mediastinal contours appear normal. Heart size is normal. Bones and chest wall: No suspicious bony lesions. Overlying soft tissues appear unremarkable. IMPRESSION: No acute cardiopulmonary abnormality is seen. Dictated by: Alex Zuleta M.D. on 12/17/2024 at 13:54 Approved by: Alex Zuleta M.D. on 12/17/2024 at 13:54
[2024-12-17] MEDS: ONDANSETRON 4 MG/2 ML INJ IV (13:21)
[2024-12-17] MEDS: ASPIRIN 81 MG CHEW TAB 324 MG PO (13:21)
--- NOTE | 2024-12-17 13:23 | EKG_ITS ---
[address] [address] Test Date: 2024-12-17 Pat Name: Aurora Coto Department: Room: Gender: Female Back Maker: KAROLINA : 1990 Requested By: Order Number: [id number] Reading MD: Cj Cleveland Measurements Intervals [place] Rate: 87 P: 46 ID: [id number] QRS: 82 QRSD: 86 T: 42 QT: 358 QTc: 430 Interpretive Statements Normal sinus rhythm with sinus arrhythmia Electronically Signed On 12-17-2024 18:25:41 PDT by Cj Cleveland
[2024-12-17 13:37] LABS: Add Manual Diff / Slide Review NO; Hematocrit 39.8 % (36-46); Hemoglobin 13.3 g/dL (12.0-16.0); Lymphocytes Absolute Auto 2400 /uL (1100-4500); Mean Corpuscular HGB Conc 33.5 % (30-36); Mean Corpuscular Hemoglobin 28.1 PG (26-34); Mean Corpuscular Volume 83.8 fL (80-100); Platelet Count 261 X10^3/uL (150-400)
[2024-12-17 13:46] LABS: INR 1.1 (0.9-1.3); Prothrombin Time 12.0 SECONDS (9.4-12.5)
[2024-12-17 13:49] LABS: Alanine Aminotransferase 26 IU/L (<35); Albumin 4.8 g/dL (3.5-5.0); Albumin Globulin Ratio 1.4 (1.0-2.8); Alkaline Phosphatase 68 U/L (38-126); Blood Urea Nitrogen 10 mg/dL (7-17); Calcium 9.3 mg/dL (8.4-10.2); Carbon Dioxide 26 mmol/L (22-32); Chloride 102 mmol/L (98-107); Creatine Kinase 97 U/L (30-135); Estimated Glomerular Filt Rate > 60 mL/min (>60); Globulin 3.5 g/dL (1.7-4.1); Glucose 142 mg/dL (70-99); HEMOLYSIS 21 (0-50); Lipase 80 U/L (23-300); Magnesium 1.8 mg/dL (1.6-2.3); PTT Partial Thromboplastin Tim 41 SECONDS (25.1-36.5); Potassium 3.8 mmol/L (3.4-5.1); Sodium 138 mmol/L (137-145); Total Protein 8.3 g/dL (6.3-8.2)
[2024-12-17 14:01] LABS: NT-proBNP (BNP-Adult 18+) < 20 pg/mL (<125); Troponin I < 0.012 ng/mL (0.01-0.034)
[2024-12-17 17:23] LABS: Troponin I < 0.012 ng/mL (0.01-0.034)
--- NOTE | 2024-12-17 18:10 | ED.CHESTPAIN ---
HPI - Chest Pain General Chief Complaint: Chest Pain Stated Complaint: N/V Upper back pain , chest pain , headache Time Seen by Provider: 12/17/24 15:55 Source: patient Mode of arrival: Ambulatory Limitations: no limitations History of Present Illness HPI narrative: 34-year-old female history of type 2 diabetes, PCOS, presents with nonbilious, nonbloody, nausea, and vomiting multiple episodes started last evening with frontal headache with no light or sound sensitivity that then progressed to having midsternal chest pain later today and feeling sore in her upper back as well. She describes the chest pain as being squeezed in. She did take a dose of Tylenol last night for her headache. She tested herself at home fall without rapid COVID that was negative and was also seen at walk-in clinic today with a negative COVID test. She was given something for nausea and her nausea is better now but denies any diarrhea belly pain urinary complaints shortness of breath, dyspnea on exertion, leg pain, leg swelling, fever, chills, body aches, stiff neck, rash. 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 Other than what is stated 14 point review of system is negative. Related Data Home Medications ?Medication ?Instructions ?Recorded ?Confirmed glyburide 5 mg tablet 10 mg PO BID 12/01/24 12/17/24 Held on 12/01/24. Instructions: Home Medication placed on hold at Doctor's office Previous Rx's ?Medication ?Instructions ?Recorded ketoconazole 2 % topical cream 1 applic topical BID #60 grams 04/26/21 nystatin 100,000 unit/gram topical 1 applic topical BID #30 grams 04/30/23 powder acetaminophen 500 mg capsule 1,000 mg (2 x 500 mg) PO Q6H PRN 10/03/23 pain #60 caps diclofenac epolamine 1.3 % 1 patch topical BID PRN pain #30 ea 06/19/24 transdermal 12 hour patch metformin 1,000 mg tablet 1,000 mg PO BID #180 tabs 07/07/24 diclofenac sodium 3 % topical gel 1 applic topical BID #100 grams 07/08/24 gabapentin 300 mg capsule 300 mg PO ONCE PM PRN for low back 07/28/24 pain #90 caps hydroxyzine HCl 25 mg tablet 25 mg PO 3XD PRN for anxiety #30 10/17/24 tabs calcium carbonate 1,200 mg (2 x 600 mg calcium 12/01/24 (1,500 mg)) PO DAILY #180 tabs tirzepatide 10 mg/0.5 mL 10 mg (0.5 mL) SUBCUT QWEEK #2 mL 12/01/24 subcutaneous pen injector ondansetron HCl 4 mg tablet 4 mg PO Q8H PRN nausea and 12/17/24 vomiting #30 tabs Allergies Allergy/AdvReac Type Severity Reaction Status Date / Time Penicillins (PENICILLINS) Allergy Unknown Verified 12/17/24 13:15 ibuprofen Allergy Fever Verified 12/17/24 13:15 victoza AdvReac Intermediate injection Uncoded 12/17/24 13:15 reaction Review of Systems Review of Systems ROS Unobtainable: All systems reviewed & are unremarkable except as noted in HPI and below Patient History Medical History (Updated 12/17/24 @ 19:35 by Shayne Simpson DO) Diabetes mellitus (2017) Ovarian cyst (2003) Anemia (2005) Chicken pox (1998) Anxiety (2009) Irregular periods/menstrual cycles (2009) Migraines (2005) Surgical History Anesthesia Hx of cholecystectomy (2014) Family History Grandfather Heart disease Hypertension High cholesterol Diabetes mellitus Grandmother Heart disease Diabetes mellitus Mother Age: 57 Hypertension High cholesterol Diabetes mellitus Father Diabetes mellitus Grandfather No problems noted. Grandmother Diabetes mellitus Social History marital status: number of children: 1 household members: spouse and children lives independently: Yes pets and animals: Yes education level: high school occupational status: employed and student robert/spiritism: Protestant seatbelt use: always working smoke detector in home: Yes fire extinguisher in home: Yes firearms in home: No Smoking Status: Unknown if ever smoked Smokeless tobacco user: other quit status: quit date established alcohol intake: current substance use type: does not use during the past year weight has: increased > 10 lbs well-balanced diet: about half the time daily servings fruits/ve-4 caffeine: No eating out: rarely or never Type(s) of exercise: additional frequency: 1-2 times per week duration: 15-30 minutes/day additional social history: Rare/occasional alcohol use Smoking Status: Unknown if ever smoked alcohol intake frequency: holidays/special occasions only Exam Narrative Exam Narrative: GENERAL: [34] year old patient appears stated age. Well-developed patient, in mild distress. HEAD: Atraumatic. Normocephalic. EYES: Pupils equal round and reactive. Extraocular motions intact. No scleral icterus. No injection or drainage. ENT: Nose without bleeding, purulent drainage. Throat without erythema, tonsillar hypertrophy or exudate. Airway patent. NECK: Trachea midline. Non tender CARDIOVASCULAR: Regular rate and rhythm without murmurs, gallops, or rubs. Chest pain meds sternal region tender to palpate reproducible on exam RESPIRATORY: Clear to auscultation. Breath sounds equal bilaterally. No wheezes, rales, or rhonchi. GASTROINTESTINAL: Abdomen soft, non-tender, nondistended. EXTREMITIES: No edema or joint tenderness. BACK: Nontender without deformity or crepitance. No flank tenderness. NEURO: AOx3. GCS 15 nonfocal neuro exam moves extremities spontaneously in all directions with no difficulty SKIN: No rash or erythema of visible areas Initial Vital Signs Initial Vital Signs: Vital Signs Temperature 97.2 F L 12/17/24 13:15 Pulse Rate 88 12/17/24 13:15 Respiratory Rate 15 12/17/24 13:15 Blood Pressure 140/68 12/17/24 13:15 Pulse Oximetry 99 12/17/24 13:15 Oxygen Delivery Method Room Air 12/17/24 13:15 Scores HEART Score Heart Score history: Slightly Suspicious Heart Score EKG: Normal Heart Score Age: < 45 years old Heart Score risk factors: 1-2 risk factors Heart Score troponin: < or = to normal limit Heart Score Total: 1 Course Orders Ordered: ED Orders 12/17/24 13:18 XR chest 1V Stat EKG-12 Lead Stat 12/17/24 13:21 Complete Blood Count AUTO DIFF Stat Comprehensive Metabolic Panel Stat Lipase Stat Magnesium Stat NT-proBNP (BNP-Adult 18+) Stat PTT Partial Thromboplastin Patric Stat Prothrombin Time INR Stat Troponin & CK Cardiac Panel Stat 12/17/24 16:35 Trop I [Troponin I] Stat 12/17/24 18:23 D Dimer Stat 12/17/24 18:32 Covid-19 + FLU A/B + RSV - PCR Stat Ondansetron HCl (Ondansetron 4 Mg/2 Ml Inj) 4 mg IV NOW PRN PRN Reason: Nausea And Vomiting Last Admin: 12/17/24 13:21 Dose: 4 mg Documented By: ENDER Ondansetron HCl (Ondansetron 4 Mg Odt) 4 mg PO NOW PRN PRN Reason: Nausea And Vomiting Discontinued Medications Aspirin (Aspirin 81 Mg Chew Tab) 324 mg PO NOW ONE Stop: 12/17/24 13:19 Last Admin: 12/17/24 13:21 Dose: 324 mg Documented By: ENDER Lactated Ringer's (Lactated Ringers) 1,000 mls @ 1,000 mls/hr IV BOLUS ONE Stop: 12/17/24 19:25 Last Admin: 12/17/24 18:40 Dose: 1,000 mls/hr Documented By: NAGA Ketorolac Tromethamine (Ketorolac 30 Mg/Ml Vial) 15 mg IV NOW ONE Stop: 12/17/24 18:29 Last Admin: 12/17/24 18:41 Dose: 15 mg Documented By: NAGA Vital Signs Vital signs: Vital Signs - 8 hr 12/17/24 13:15 12/17/24 16:10 12/17/24 16:11 Temperature 97.2 F L Pulse Rate 88 72 Respiratory Rate 15 Blood Pressure 140/68 Pulse Oximetry 99 92 98 Oxygen Delivery Method Room Air 12/17/24 16:11 12/17/24 16:30 12/17/24 16:30 Temperature Pulse Rate 78 Respiratory Rate 15 Blood Pressure 137/68 136/77 Pulse Oximetry 96 Oxygen Delivery Method 12/17/24 17:00 12/17/24 17:00 Temperature Pulse Rate 75 Respiratory Rate 11 L Blood Pressure 131/77 Pulse Oximetry 98 Oxygen Delivery Method MDM - Chest Pain Lab Data 12/17/24 13:21 12/17/24 13:21 Labs: Lab Results 12/17/24 12/17/24 12/17/24 Range/Units 13:21 16:35 18:23 WBC 7.9 (4.5-11.0) X10^3/uL RBC 4.75 (4.0-5.2) X10^6/uL Hgb 13.3 (12.0-16.0) g/dL Hct 39.8 (36-46) % MCV 83.8 (80-100) fL MCH 28.1 (26-34) PG MCHC 33.5 (30-36) % RDW 13.5 (11.6-14.8) % Plt Count 261 (150-400) X10^3/uL Neut % (Auto) 62.5 (50-75) % Lymph % (Auto) 29.8 (25-40) % [place] % (Auto) 5.2 (3-14) % Eos % (Auto) 1.7 L (2-4) % Baso % (Auto) 0.8 (0-2) % Neut # (Auto) 5000 (7162-6034) /uL Lymph # (Auto) 2400 (0190-4332) /uL [place] # (Auto) 400 (0-900) /uL Eos # (Auto) 100 (0-450) /uL Baso # (Auto) 100 (0-100) /uL PT 12.0 (9.4-12.5) SECONDS INR 1.1 (0.9-1.3) APTT 41 H (25.1-36.5) SECONDS D-Dimer < 215 (<500) ng/ml Sodium 138 (137-145) mmol/L Potassium 3.8 (3.4-5.1) mmol/L Chloride 102 (98-107) mmol/L Carbon Dioxide 26 (22-32) mmol/L BUN 10 (7-17) mg/dL Creatinine 0.68 (0.52-1.04) mg/dL Estimated GFR > 60 (>60) mL/min BUN/Creatinine Ratio 14.7 (6-22) Glucose 142 H (70-99) mg/dL Calcium 9.3 (8.4-10.2) mg/dL Magnesium 1.8 (1.6-2.3) mg/dL Total Bilirubin 0.5 (0.2-1.3) mg/dL AST 26 (14-36) IU/L ALT 26 (<35) IU/L Alkaline Phosphatase 68 (38-126) U/L Total Creatine Kinase 97 (30-135) U/L Troponin I < 0.012 < 0.012 (0.01-0.034) ng/mL NT-Pro-B Natriuret Pep < 20 (<125) pg/mL Total Protein 8.3 H (6.3-8.2) g/dL Albumin 4.8 (3.5-5.0) g/dL Globulin 3.5 (1.7-4.1) g/dL Albumin/Globulin Ratio 1.4 (1.0-2.8) Lipase 80 (23-300) U/L SARS-CoV-2 (PCR) (Negative) Influenza A (RT-PCR) (NEGATIVE) Influenza B (RT-PCR) (NEGATIVE) RSV (PCR) (Negative) 12/17/24 Range/Units 18:32 WBC (4.5-11.0) X10^3/uL RBC (4.0-5.2) X10^6/uL Hgb (12.0-16.0) g/dL Hct (36-46) % MCV (80-100) fL MCH (26-34) PG MCHC (30-36) % RDW (11.6-14.8) % Plt Count (150-400) X10^3/uL Neut % (Auto) (50-75) % Lymph % (Auto) (25-40) % [place] % (Auto) (3-14) % Eos % (Auto) (2-4) % Baso % (Auto) (0-2) % Neut # (Auto) (3682-3367) /uL Lymph # (Auto) (2704-7664) /uL [place] # (Auto) (0-900) /uL Eos # (Auto) (0-450) /uL Baso # (Auto) (0-100) /uL PT (9.4-12.5) SECONDS INR (0.9-1.3) APTT (25.1-36.5) SECONDS D-Dimer (<500) ng/ml Sodium (137-145) mmol/L Potassium (3.4-5.1) mmol/L Chloride (98-107) mmol/L Carbon Dioxide (22-32) mmol/L BUN (7-17) mg/dL Creatinine (0.52-1.04) mg/dL Estimated GFR (>60) mL/min BUN/Creatinine Ratio (6-22) Glucose (70-99) mg/dL Calcium (8.4-10.2) mg/dL Magnesium (1.6-2.3) mg/dL Total Bilirubin (0.2-1.3) mg/dL AST (14-36) IU/L ALT (<35) IU/L Alkaline Phosphatase (38-126) U/L Total Creatine Kinase (30-135) U/L Troponin I (0.01-0.034) ng/mL NT-Pro-B Natriuret Pep (<125) pg/mL Total Protein (6.3-8.2) g/dL Albumin (3.5-5.0) g/dL Globulin (1.7-4.1) g/dL Albumin/Globulin Ratio (1.0-2.8) Lipase (23-300) U/L SARS-CoV-2 (PCR) Negative (Negative) Influenza A (RT-PCR) Flu a negative (NEGATIVE) Influenza B (RT-PCR) Flu b negative (NEGATIVE) RSV (PCR) Negative (Negative) Imaging Data Chest x-ray: Radiologist's Impression: [address] [address] XRay Report Signed Patient: Aurora Coto MR#: [id number] : 1990 Acct:[id number] Age/Sex: 34 / F Date of Service: 12/17/24 Loc: ED Accession Number: [id number] Procedure: XR chest 1V Ordering Provider: Deidre George D.O. PROCEDURE: XR CHEST 1V INDICATIONS: Chest Pain TECHNIQUE: One view of the chest was acquired. COMPARISON: [facility], , XR CHEST 2V, 04/17/2023, 15:56. [facility], CR, XR CHEST 2V, 02/22/2021, 11:57. FINDINGS: Surgical changes and devices: None. Lungs and pleura: Lungs are clear. No pleural effusions or pneumothorax. Mediastinum: Mediastinal contours appear normal. Heart size is normal. Bones and chest wall: No suspicious bony lesions. Overlying soft tissues appear unremarkable. IMPRESSION: No acute cardiopulmonary abnormality is seen. ECG Data Interpretation: NSR HR 87 AL 164 QRS [address]-t wave change Change from 02/16/21 [facility] Narrative Medical decision making narrative: All lab work, vital signs, nurse triage note, medication list, previous ER visits, and all imaging studies reviewed. Two sets troponin negative. Heart Score of 1. Chest x-ray showed no acute process. D-dimer is normal. Patient given fluids and Toradol here. COVID flu RSV is negative. Differential diagnosis COVID, flu, RSV, dehydration, viral, Mounjaro dosing side effects. DC home on Zofran and to keep hydrated Discharge Plan Departure Patient Disposition: Home Clinical Impression: Acute chest wall pain, Nausea & vomiting, Headache Instructions: DI for Chest Pain Activity Restrictions/Additional Instructions: Return with new or worsening symptoms. Take Tylenol as needed for chest wall pain. Take Zofran as needed for her nausea vomiting. Keep hydrated. Follow up PCP in 1-2 weeks if no improvement in symptoms. Prescriptions: New ondansetron HCl 4 mg tablet 4 mg PO Q8H PRN (Reason: nausea and vomiting) Qty: 30 0RF No Action gabapentin 300 mg capsule 300 mg PO ONCE PM PRN (Reason: for low back pain) Qty: 90 3RF glyburide 5 mg tablet 10 mg PO BID tirzepatide 10 mg/0.5 mL pen injector 10 mg SUBCUT QWEEK Qty: 2 2RF Rx Instructions: once weekly calcium carbonate 600 mg calcium (1,500 mg) tablet 1,200 mg PO DAILY Qty: 180 0RF ketoconazole 2 % cream 1 applic topical BID Qty: 60 2RF nystatin 100,000 unit/gram powder 1 applic topical BID Qty: 30 2RF diclofenac epolamine 1.3 % patch 12 hour 1 patch topical BID PRN (Reason: pain) Qty: 30 1RF metformin 1,000 mg tablet 1,000 mg PO BID Qty: 180 3RF diclofenac sodium 3 % gel 1 applic topical BID Qty: 100 1RF hydroxyzine HCl 25 mg tablet 25 mg PO 3XD PRN (Reason: for anxiety) Qty: 30 0RF acetaminophen 500 mg capsule 1,000 mg PO Q6H PRN (Reason: pain) Qty: 60 0RF Referrals: Shilpi Sahu MD [Primary Care Provider, Family Practice] Stand Alone Forms: Patient Portal/API
[2024-12-17] MEDS: LACTATED RINGERS 1,000 ML 1000 ML IV (18:40)
[2024-12-17] MEDS: KETOROLAC 30 MG/ML VIAL 15 MG IV (18:41)
[2024-12-17 19:13] LABS: Influenza A - CEPHEID Flu A NEGATIVE (NEGATIVE); Influenza B - CEPHEID Flu B NEGATIVE (NEGATIVE)
[2024-12-17 19:14] LABS: COVID-19 CEPHEID 4-PLEX PCR Negative (Negative)
== END 2024-12-17 19:54 | disposition home or self-care (01) ==
PROVIDERS: Emergency Medicine; Physician Assistant; Emergency Provider Family Medicine; PCP Family Medicine
DX: R07.89 Other chest pain (principal); R11.2 Nausea with vomiting, unspecified; R51.9 Headache, unspecified; E11.9 Type 2 diabetes mellitus without complications; M54.6 Pain in thoracic spine
CPT/HCPCS: 36415; 71045; 80053; 82550; 83690; 83735; 83880; 84484; 85025; 85379; 85610; 85730; 87637; 93005; 96361; 96374; 96375; 99284; J1885; J2405

== ENCOUNTER → 2025-01-02 10:17 | Outpatient (CLI) | payer OTHER, SELFPAY ==
[2025-01-02 11:38] LABS: Hemoglobin A1C% w Est Avg Glu 5.9 % (4.0-6.0)
== END ==
PROVIDERS: PCP Family Medicine; Referring Provider Family Medicine; Visit Provider Family Medicine
DX: E11.9 Type 2 diabetes mellitus without complications (principal)
CPT/HCPCS: 36415; 83036

== ENCOUNTER → 2025-01-29 09:11 | Outpatient (CLI) | payer OTHER, SELFPAY ==
[2025-01-29 10:23] LABS: COVID-19 CEPHEID 4-PLEX PCR Negative (Negative); Influenza A - CEPHEID Flu A NEGATIVE (NEGATIVE); Influenza B - CEPHEID Flu B NEGATIVE (NEGATIVE)
== END ==
PROVIDERS: PCP Family Medicine; Visit Provider Nurse Practitioner Family
DX: J02.9 Acute pharyngitis, unspecified (principal)
CPT/HCPCS: 87070; 87637